=== PATIENT | female | born 1960 | race African-American/Black ===

== ENCOUNTER 2016-10-24 13:31 | Inpatient (IN) ==
[2016-10-24] MEDS ORDERED: HYDROMORPHONE 2 MG/ML INJECTION IVP ONE ×2 (13:53→14:51)
[2016-10-24] MEDS ORDERED: ONDANSETRON 4 MG/2 ML INJECTION IVP ONE (13:53)
--- NOTE | 2016-10-24 14:23 | CT Scan Report ---
Indication: Diffuse Abdominal pain for two days, distention PROCEDURE: CT abdomen pelvis wo con: Encounter: Initial Comparison: None Technique: Axial CT images were performed through the abdomen and pelvis without intravenous contrast. Coronal and sagittal two-dimensional reformats. Automated Exposure Control and Iterative Reconstruction dose reducing techniques were utilized. Findings: The lung bases are clear. Calcified granuloma in the lingula. Moderate amount of free fluid in the abdomen and pelvis. Low-attenuation lesion in the anterior left lobe of liver on axial image #17 measuring 1 cm in size possibly representing a benign cyst this has an attenuation of 6 Hounsfield units. Additional cyst in the more inferior left lobe on image #20 measuring 1.5 cm in diameter and smaller low-attenuation foci in the inferior right lobe on axial image #25 which are too small to definitively characterize. The gallbladder is grossly unremarkable. Examination is limited without IV or oral contrast. The spleen is diminutive. The pancreas is grossly normal. Adrenal glands appear normal as do the unenhanced kidneys. Bladder is unremarkable. Uterus appears normal. Colon is decompressed distally. There is stool and possible wall thickening within the region of the cecum. There are multiple dilated small bowel loops present throughout the abdomen. A precise transition point cannot be located. There is a swirling appearance of the mesentery seen on coronal images 13 through 18 in the left upper quadrant. The appendix is visualized without acute inflammation. There are thick-walled dilated small bowel loops seen in the anterior lower abdomen and pelvis. No free air appreciated. Bone windows show mild degenerative change in the spine. Impression: 1. Acute small bowel obstruction with suggestion of swirling in the left upper quadrant mesentery could represent an internal hernia. Evaluation is quite limited without oral or IV contrast and the precise transition point or site of obstruction cannot be located. Thick-walled small bowel loops could represent mesenteric edema or developing small bowel ischemia. Surgical consultation is recommended. 2. Moderate volume ascites. .
[2016-10-24] MEDS: NS 1,000 ML IV SCH ×2 (14:34→21:33)
--- NOTE | 2016-10-24 14:36 | Emergency Department Report ---
Abdominal Pain HPI - General Chief Complaint: Abdominal Pain Stated Complaint: real bad cramping in abd, sweats,cant sleep Time Seen by Provider: 10/24/16 13:45 Source: patient Mode of arrival: ambulatory Limitations: no limitations - History of Present Illness HPI narrative: Pt presents with severe abd pain for the last few days. Pt is unaware if she has had a fever but has had chills. Reports vomiting after any PO intake. Denies diarrhea. States she drinks alcohol every other day and has HTN MD complaint: abdominal pain Onset (ago): day(s) Consistency: constant Location: diffuse Severity: severe Quality: cramping, fullness Relieving factors: nothing Exacerbating factors: nothing Associated symptoms: nausea, vomiting, chills - Related Data Home Medications Medication Instructions Recorded Confirmed Atenolol 25 mg PO DAILY #0 08/19/14 10/24/16 Pravastatin Sodium 20 mg PO DAILY #0 08/19/14 10/24/16 hydroCHLOROthiazide 25 mg PO DAILY #0 08/19/14 10/24/16 [Hydrochlorothiazide] Allergies Allergy/AdvReac Type Severity Reaction Status Date / Time No Known Allergies Allergy Unverified 08/19/14 16:09 Review of Systems All systems: reviewed and negative except as stated Constitutional: Reports: chills Gastrointestinal: Reports: abdominal pain, nausea, vomiting PFSH Patient Stated Medical History Hypertension Yes Post Menopausal Yes - Social History Smoking status: Current every day smoker Physical Exam - Limitations Limitations: no limitations - General General appearance: alert, in distress - Normal Exams: Head:: Normocephalic without trauma Eyes:: Pupils are PERRLA w/ EOMI Neck:: Full range of motion Chest/Respirations:: Clear all rodgers, with good airflow, and symmetry bilaterally Cardiovascular:: Regular rate and rhythm, without murmur or gallop, Pulses 2+ all extremities, capillary refill, <2 seconds all extremities Musculoskeletal:: No tenderness, or deformity noted, good range of motion, all extremities Integumentary:: No rashes Neurological:: Patient is alert Psychiatric:: Patient exhibits, appropriate attention, emotion and affect - Abdominal Exam Abdominal exam: Present: distention, tenderness, rebound, diminished bowel sounds Course - Consultations Consultation #1: Dr Nava Time: 15:00 Vital Signs Temperature 97.5 F 10/24/16 13:35 Pulse Rate 103 H 10/24/16 13:35 Respiratory Rate 20 10/24/16 13:35 Blood Pressure 181/79 H 10/24/16 13:35 Pulse Oximetry 100 10/24/16 13:35 Temperature 97.5 F 10/24/16 13:35 Pulse Rate 103 H 10/24/16 13:35 Respiratory Rate 20 10/24/16 13:35 Blood Pressure 181/79 H 10/24/16 13:35 Pulse Oximetry 100 10/24/16 13:35 Abdominal Pain - MDM Narrative Medical decision making narrative: Labs with varying abnormalities reviewed. CT shows abd free fluid with possible ischemic bowel, Dr Nava notified and will be taking patient to the OR. Pt continues to receive pain meds and IVF while in the ER - Differential Diagnosis Differential diagnosis: Likely: abdominal pain, acute appendicitis, constipation , diverticulitis, pancreatitis, small bowel obstruction - Lab Data Attestation: I reviewed the patient's lab results. Result diagrams: 10/24/16 14:32 10/24/16 14:32 - Radiology Data per Dr Walker Disposition Clinical Impression: Ischemic bowel syndrome, Alcoholism /alcohol abuse Acute kidney failure Qualifiers: Acute renal failure type: unspecified Qualified Code(s): N17.9 - Acute kidney failure, unspecified Abdominal pain Qualifiers: Abdominal location: generalized Qualified Code(s): R10.84 - Generalized abdominal pain Disposition: 02 To [facility] [place] Acute Care Condition: Stable Prescriptions: No Action hydroCHLOROthiazide [Hydrochlorothiazide] 25 mg PO DAILY #0 Atenolol 25 mg PO DAILY #0 Pravastatin Sodium 20 mg PO DAILY #0 Referrals: Jeni Mckeon APRN [Primary Care Provider] - Time of Disposition: 15:56 - Seen By: midlevel
[2016-10-24] MEDS ORDERED: LIDOCAINE 2% (100mg/5mL) PF 5ml vl ONE (15:33)
[2016-10-24] MEDS ORDERED: PROPOFOL 20 ML ONE (15:33)
[2016-10-24] MEDS ORDERED: SUCCINYLCHOLINE 20mg/mL 10mL INJECTION ONE (15:33)
[2016-10-24] MEDS ORDERED: ROCURONIUM 50 MG/5 ML INJECTION IVP ONE ×2 (15:33→17:54)
[2016-10-24] MEDS ORDERED: FentaNYL 100 MCG/2 ML INJECTION ONE ×2 (15:37→17:49)
--- NOTE | 2016-10-24 16:49 | Anesthesia Preoperative Report ---
Anesthesia Preoperative Record - Date and Time Date: 10/24/16 Preoperative Diagnosis: real bad cramping in abd, sweats,cant sleep NPO Since Date: 10/24/16 NPO Since Time: 11:00 (water) Allergies/Adverse Reactions: Allergies Allergy/AdvReac Type Severity Reaction Status Date / Time No Known Allergies Allergy Unverified 08/19/14 16:09 - Vital Signs Vital Signs: Temperature 98.4 F 10/24/16 16:05 Pulse Rate 86 10/24/16 16:13 Respiratory Rate 20 10/24/16 16:05 Blood Pressure 108/66 10/24/16 16:05 Pulse Oximetry 100 10/24/16 16:05 Height and Weight: Height 1.6 m Weight 58.1 kg - Medications Inpatient Medications: Current Medications Sodium Chloride (Normal Saline) 1,000 mls @ 250 mls/hr IV .Q4H JENELLE Last Admin: 10/24/16 14:34 Dose: 250 mls/hr Home Medications: Home Medications Medication Instructions Recorded Confirmed Type Atenolol 25 mg PO DAILY #0 08/19/14 10/24/16 History Pravastatin Sodium 20 mg PO DAILY #0 08/19/14 10/24/16 History hydroCHLOROthiazide 25 mg PO DAILY #0 08/19/14 10/24/16 History [Hydrochlorothiazide] Is Patient on Beta Bhavesh?: Yes Beta Bhavesh Last Dose Date/Time: npo - Medical History Cardiovascular: Reports: Hypertension, High Cholesterol - Surgical History Anesthesia Reactions: None Hx Family Anesthesia Reaction: No History of Motion Sickness: No - Social History Smoking Status: Current every day smoker Hx Chewing Tobacco Use: No Second Hand Exposure: No Substance Use Type: does not use Alcohol Intake Frequency: does not drink - Pertinent Findings Laboratory: CBC and BMP 10/24/16 14:32 10/24/16 14:32 BMP 10/24/16 14:32 Sodium 140 Potassium 3.5 L Chloride 103 Carbon Dioxide 18 L BUN 22.0 H Creatinine 2.1 H Glucose 149 H Calcium 8.0 L Liver Function 10/24/16 Range/Units 14:32 Total Bilirubin 0.90 (0.20-1.30) MG/DL AST 32 (14-36) U/L ALT 26 (9-52) U/L Alkaline Phosphatase 80 (38-126) U/L Albumin 4.1 (3.5-5.0) G/DL EKG: Sinus Rhythm - Physical Exam Respiratory Exam: Present: lungs clear Cardiovascular Exam: Present: regular rate and rhythm - Airway Assessment Mallampati Score: I TMD: 3 Fingerbreadths Neck Extension: fair Overall Assessment: no airway concerns - ASA ASA Score: 3, E - Plan Anesthesia: General Inhalation Gases - Discussion Discussion: Discussed risks/options/alternatives of anesthesia and questions answered. Patient consents. Nursing pain assessment noted. Present for Discussion: family member Attestation Statement: Prior to the delivery of any anesthetic medication, I examined the patient, developed the plan, obtained the patient's consent and discussed the risk and benefits of the procedure with the patient/guardian. - Additional Information Seen by Anesthesia: Yes
[2016-10-24] MEDS ORDERED: LIDOCAINE 2% JELLY Tube 30ml ONE (17:03)
[2016-10-24] MEDS ORDERED: PHENYLEPHRINE INJ 10 MG/ML VIAL IV ONE (17:06)
[2016-10-24] MEDS ORDERED: SALINE FLUSH 10ml SYRINGE ONE (17:06)
[2016-10-24] MEDS ORDERED: SALINE FLUSH *Sterile* 10 ML SYRINGE ONE (17:39)
[2016-10-24] MEDS ORDERED: VASOPRESSIN 20unit/ml INJECTION ONE (18:14)
[2016-10-24] MEDS: LR 1,000 ML IV SCH ×2 (18:40→19:49)
[2016-10-24] MEDS ORDERED: DEXAMETHASONE 4 MG/ML INJECTION ONE (18:46)
[2016-10-24] MEDS ORDERED: ONDANSETRON 4 MG/2 ML INJECTION ONE (18:46)
[2016-10-24] MEDS ORDERED: HYDROMORPHONE 2 MG/ML INJECTION ONE (18:55)
[2016-10-24] MEDS ORDERED: SUGAMMADEX 200mg/2ml INJECTION IVP ONE (18:56)
--- NOTE | 2016-10-24 19:36 | General Surgery Procedure Note ---
Date of Procedure: 10/24/16 Surgeon: Elijah Postoperative Diagnosis: Small bowel obstruction with strangulation Procedure: small bowel resection Estimated Blood Loss: See Anesthesia Record.
[2016-10-24] MEDS: HYDROMORPHONE 2 MG/ML INJECTION IVP PRN ×2 (19:46→20:28)
--- NOTE | 2016-10-24 19:51 | History and Physical ---
HISTORY OF PRESENT ILLNESS This patient is 56 years old. She has had no previous abdominal operations. She has no history of any type of chronic abdominal pain or any chronic abdominal problems. The patient did experience the onset of generalized abdominal pain on the morning of 10/23/2016. This pain has gradually steadily become worse. The patient has had nausea and vomiting since the onset of this abdominal pain. She has had no diarrhea. The abdominal pain did become severe enough that the patient came to [facility] for evaluation on 10/24/2016. The CT scan of the abdomen and pelvis performed during evaluation at [facility] shows an acute small bowel obstruction with a suggestion of swirling in the left upper quadrant mesentery which could represent an internal hernia. White blood cell count at the emergency room is noted to be 22,000. There is concern that the patient might have some ischemic small bowel. The CT scan does also show a moderate amount of ascites fluid within the peritoneal cavity. There is no free air. PAST MEDICAL HISTORY PREVIOUS OPERATIONS 1. Removal of wisdom teeth at some time in the early at [place], [place]. 2. Removal of cyst from left foot sometime in the at [place], [place]. OTHER CURRENT MEDICAL PROBLEMS 1. Nicotine dependence. 2. Hypertension. 3. Hyperlipidemia. SOCIAL HISTORY The patient lives in [place], [place]. The patient is unemployed. The patient is . The patient smokes about one pack of cigarettes every four to five days. She does drink alcohol. She drinks alcohol on the weekends. She sometimes drinks alcohol every other day during the week. The patient drinks vodka. CURRENT MEDICATIONS 1. Atenolol one p.o. daily in the a.m. 2. Hydrochlorothiazide one p.o. daily in the a.m. 3. Medication for treatment of hyperlipidemia. ALLERGY HISTORY The patient states she has no known allergies to medications. PHYSICAL EXAMINATION VITAL SIGNS: Pulse is 97. Blood pressure is 111/72. Oxygen saturation is 99% on room air. Height is 1.6 meters. Weight is 58.1 kg. BMI is 22.7 kg/m2. HEENT: No abnormality is noted. NECK: No neck masses. CHEST: Lung sounds are clear. BREASTS: Not examined. HEART: Regular rhythm. No murmurs. ABDOMEN: The superior margin of the umbilicus is pierced. No old incision scars. The abdomen is diffusely distended. The patient does have generalized abdominal tenderness. There is no rebound tenderness. There are no masses at the abdomen. RECTUM: Exam deferred. EXTREMITIES: No abnormality is noted. LABORATORY DATA White blood cell count is 22,000. Hemoglobin is 13.1. Hematocrit is 38.7. Platelet count is 380,000. INR is 0.97. Serum sodium is 140. Serum potassium is 3.5. Serum creatinine is elevated at 2.1. Total bilirubin, AST, ALT and alkaline phosphatase are all normal. Serum lipase is 44. Procalcitonin result at admission is pending yet at this time. Venous blood lactate result at admission is pending at this time. IMAGING DATA The patient did have a CT scan of the abdomen and pelvis performed on 2016. This CT scan of the abdomen and pelvis shows an acute small bowel obstruction with a suggestion of swirling in the left upper quadrant mesentery which could represent an internal hernia. There are some thick-walled small bowel loops. There is a moderate volume of ascites demonstrated. IMPRESSION 1. Acute abdominal pain. 2. Sepsis. 3. Acute small bowel obstruction with suggestion of swirling in the left upper quadrant mesentery which could represent an internal hernia demonstrated on CT scan of the abdomen and pelvis. 4. Moderate volume of ascites demonstrated on 10/24/2016 CT scan of the abdomen and pelvis. 5. Mild hypokalemia. 6. Elevated serum creatinine. 7. Nicotine dependence. 8. Hypertension. 9. Hyperlipidemia. PATIENT EDUCATION I did talk with the patient about undergoing exploratory laparotomy with possible small bowel resection. The nature of this procedure was explained to the patient [id number]. Expected benefits were reviewed. Alternatives were reviewed. Potential risks and complications were also reviewed including anesthetic risk, bleeding, infection, poor wound-healing and injury to intraabdominal structures. Questions were solicited from the patient. All of her questions were answered. PLAN Exploratory laparotomy with possible small bowel resection by Dr. Nava at [facility]. JUAN
--- NOTE | 2016-10-24 20:05 | Anesthesia Postoperative Note ---
- Date and Time Date: 10/24/16 Time: 20:04 - Status Patient Participated in Evaluation: Patient Participated in Person Vital Signs: Temperature 98.1 F 10/24/16 19:34 Pulse Rate 93 10/24/16 19:55 Respiratory Rate 22 10/24/16 19:55 Blood Pressure 119/57 10/24/16 19:55 Pulse Oximetry 99 10/24/16 19:55 Respiratory Function: Airway Patent, Regular Respirations Cardiovascular Function: Regular Pulse Mental Status: Alert and Oriented Pain Intensity: 5 (tolerable) Hydration: IV Infusing Complications During Recover: None Apparent - Follow-Up Instructions Instructions: Per Surgeon
[2016-10-24] MEDS ORDERED: SORE THROAT SPRAY 20ml PO PRN (20:40)
[2016-10-24] MEDS ORDERED: PROMETHAZINE 25 MG INJECTION IVP PRN (20:40)
[2016-10-24] MEDS ORDERED: FAMOTIDINE PB 20 MG/50 ML BAG IV SCH (20:40)
[2016-10-24] MEDS ORDERED: ONDANSETRON 4 MG/2 ML INJECTION IVP PRN (20:40)
[2016-10-24] MEDS: D5-1/2NS with KCL 20mEq 1,000 ML IV SCH (21:11)
[2016-10-24] MEDS ORDERED: NS 1,000 ML IV ONE ×2 (21:24→23:34)
[2016-10-24] MEDS ORDERED: NS FLUSH BAG 500ml IV PRN (21:43)
[2016-10-24] MEDS: MORPHINE SULFATE 10 MG SYRINGE IV PRN ×2 (22:18→23:44)
[2016-10-24] MEDS: BENZOCAINE/MENTHOL SORE THROAT LOZENGE MM PRN (22:18)
[2016-10-25] MEDS: MORPHINE SULFATE 10 MG SYRINGE IV PRN ×9 (01:11→22:28)
[2016-10-25] MEDS: BENZOCAINE/MENTHOL SORE THROAT LOZENGE MM PRN ×2 (01:11→03:29)
[2016-10-25] MEDS: D5-1/2NS with KCL 20mEq 1,000 ML IV SCH ×3 (06:51→23:05)
[2016-10-25] MEDS ORDERED: FAMOTIDINE PB 20 MG/50 ML BAG IV SCH ×2 (09:00→21:00)
[2016-10-25] MEDS ORDERED: ERTAPENEM 1 G in NS 100 ML IV SCH (09:00)
--- NOTE | 2016-10-25 13:14 | Operative Note ---
DATE OF OPERATION 10/24/2016 PREOPERATIVE DIAGNOSES 1. Acute abdominal pain. 2. Acute small bowel obstruction with suggestion of swirling in the left upper quadrant mesentery which could represent an internal hernia demonstrated on CT scan of the abdomen and pelvis. 4. Moderate volume of ascites demonstrated on 10/24/2016 CT scan of the abdomen and pelvis. POSTOPERATIVE DIAGNOSIS Acute small bowel obstruction with strangulation and necrosis of loop of small bowel due to internal herniation beneath adhesive band. OPERATION Placement of right internal jugular multilumen central venous catheter, exploratory laparotomy, lysis of adhesive band with release of small bowel obstruction and small bowel resection with primary anastomosis. SURGEON Dr. Nava BLANKET WEAVER Dr. Shea ANESTHESIA General. ASA CLASS 3E FINDINGS The patient did have an adhesive band which extended from the right ovary and distal end of the right fallopian tube superiorly and medially to the base of the small bowel mesentery. This was a thick dense adhesive band. This was the only adhesion or adhesive band seen within the peritoneal cavity at the time of the operation. There was a loop of small intestine which was trapped beneath this adhesive band. This adhesive band was compressing the loop of small intestine and causing obstruction of the small intestine. The adhesive band was also causing strangulation of this loop of small intestine. This loop of small intestine was a loop of ileum at the distal half of the small intestine. The loop of small intestine which was trapped in this manner looked frankly necrotic. There was a sharp area of demarcation at the proximal end of this loop of small intestine which was trapped beneath the adhesion with indentation of the small intestine at this level and a sharp color change in the intestine. Small bowel proximal to the loop of intestine which was obstructed by this adhesion was dilated. Small bowel distal to this area and small bowel at the terminal ileum was collapsed and not dilated. The liver appeared normal. There were few small cysts in the liver, but the liver otherwise appeared completely normal. Gallbladder appeared normal and did not appear to contain any stones. The appendix appeared normal. There was a large amount of bloody fluid in the peritoneal cavity. There did not appear to be any perforation of the intestine anywhere. There was no purulent fluid anywhere in the peritoneal cavity. The colon which was visualized appeared normal. Proximal small intestine appeared normal except for being dilated due to the obstruction at the distal half of the small intestine. DESCRIPTION OF OPERATION The patient was placed in supine position on the operating table. General anesthesia was satisfactorily induced. The patient had a 24-gauge peripheral intravenous catheter at the left upper extremity at this time. Attempts were made to insert additional peripheral intravenous catheters. The patient did have poor peripheral vascular access. A 20-gauge peripheral intravenous catheter was inserted at the right hand. There was concern about the quality of these peripheral catheters and whether they would work well throughout the operation. It was thought that the patient should have better venous access before the start of the operation so that the PLANNING TECHNICIAN would not lose venous access during the operation. A decision was made to insert a multilumen central venous catheter. The patient was placed in Trendelenburg position. The left side of the neck, left supraclavicular area, left infraclavicular area, left shoulder, suprasternal notch area, right side of the neck, right supraclavicular area, right infraclavicular area and right shoulder were all prepped with ChloraPrep solution. Sterile drapes were placed. An ultrasound machine was used to examine the right internal jugular vein. The right internal jugular vein and the right carotid artery were identified with the ultrasound machine. Skin at a percutaneous venipuncture site at the right side of the neck was infiltrated with 1% Xylocaine without epinephrine to provide local anesthesia. A small incision was made at this area. Percutaneous venipuncture of the right internal jugular vein was then performed with ultrasound guidance. The vein was entered and there was a good return of dark red nonpulsatile blood. A flexible guidewire was passed through the needle and through the internal jugular vein down into the superior vena cava. The presence of the flexible guidewire within the superior vena cava was confirmed with fluoroscopy with the C-arm at this time. A 7-Urdu triple-lumen 20 cm long radiopaque polyurethane multilumen central venous catheter was flushed with normal saline solution. The multilumen central venous catheter was then inserted into the right internal jugular vein and into the superior vena cava with Seldinger technique. Fluoroscopy with the C-arm was used at this time to look at the position of the tip of the catheter and adjust the catheter until the tip was in the correct position. A Biopatch antimicrobial dressing was placed around the multilumen central venous catheter at the skin entrance site. The multilumen central venous catheter was secured to skin adjacent to the catheter entrance site with 3-0 silk suture. A sterile OpSite type of dressing was applied to the multilumen central venous catheter insertion site. Sterile technique was maintained throughout the procedure. The surgeon did wear sterile mask and gloves and gown throughout the procedure. The patient was changed from Trendelenburg position back to supine position. The abdomen was prepped and draped in routine sterile fashion. A vertically oriented midline abdominal incision was made. The incision was extended through the abdominal wall. The peritoneal cavity was entered. An Bao wound protector was placed at this time. The peritoneal cavity was explored with findings as described above. The adhesive band which was causing the closed loop obstruction was divided. This did release the small bowel obstruction. The loop of small intestine which was strangulated and necrotic was mobilized up towards the incision. Proximal and distal margins were selected at viable small bowel proximal and distal to the strangulated segment of small intestine. The small intestine was divided at these proximal and distal resection margins with the TLC75 linear cutter-stapler. Small bowel mesentery was then divided beneath the segment of small intestine to be resected. The small bowel mesentery was doubly clamped with hemostats, divided between hemostats and ligated with 0 Vicryl ligatures. The loop of small bowel which was resected was handed off and submitted as a specimen for study by the pathologist. The two ends of the small intestine were then anastomosed to one another with a functional end-to-end anastomosis using the TLC75 linear cutter- stapler and the TX60B stapling device. The opening in the mesentery beneath the small intestine was closed with a continuous simple [id number] stitch using 3-0 Vicryl suture. A couple of 3-0 Vicryl suture seromuscular stitches were placed in the usual manner at the crotch of the anastomosis. Small bowel contents in the dilated small bowel proximal to the anastomosis were then milked through the anastomosis. This did distend up the anastomosis and distended up small intestine distal to the anastomosis. There was no leakage of small bowel contents out through the staple lines anywhere. This did show that the anastomosis was watertight. The anastomosis appeared to have a good blood supply. The anastomosis appeared to have satisfactory size. There was no tension on the anastomosis. Irrigation was performed at the left lateral gutter and at the right lateral gutter and at the pelvis prior to creation of the anastomosis. Irrigation fluid was removed. Small intestine was placed back in the peritoneal cavity in normal anatomic position. The greater omentum was brought down over the small intestine. The Bao wound protector was removed. The surgeon and research study assistant and scrub nurse all changed gowns and gloves at this time. New sterile drapes were placed around the incision. A new dedicated closing set of instruments was used. New light handles, monopolar electrosurgery device and suction device were used. The incision was closed. The fascial layer of the abdominal wall was closed and the linea alba was reapproximated at the midline incision with a continuous simple over-and- over stitch using #1 PDS suture. The base of the umbilicus was secured down to the underlying fascia with a couple of simple interrupted stitches of 3-0 Vicryl suture. Skin margins at the incision were closed with skin marybeth. Sterile dressings were applied. Sponge, needle and instrument counts were all correct. The patient did appear to tolerate the operation well. The patient was transferred from the operating room to the recovery room in stable condition. JUAN
--- NOTE | 2016-10-25 20:47 | Progress Note ---
DATE 10/25/2016 POSTOP DAY #1 HISTORY The patient was transferred from the recovery room to the Intensive Care Unit yesterday evening following her operation. The patient did have some low urine output overnight. She was given 2 liters of normal saline as fluid challenges overnight and her urine output did improve in response to this. The patient remains in the Intensive Care Unit at this time. She is up in the chair. She has been using incentive spirometry. She is alert and oriented. INTAKE AND OUTPUT Urine output is adequate at this time. There has been very little nasogastric tube output. PHYSICAL EXAMINATION VITAL SIGNS: Temperature is 98.9 degrees Fahrenheit oral. Pulse is 86. Respiratory rate is 21. Blood pressure is 140/69. Oxygen saturation is 100% on room air. ABDOMEN: Dressings were left in place at the abdominal incision. LABORATORY DATA White blood cell count was 25,000 with 6 bands at 0535 hours this morning. Hemoglobin was 8 and hematocrit was 24.9 at 0535 hours this morning. Hemoglobin was 8.1 at 1006 hours this morning. Hemoglobin was 7.6 at 1519 hours this afternoon. Serum sodium was 140 this morning. Serum potassium was 4.2. Serum creatinine was decreased to 1.9 this morning. Procalcitonin level was 0.68 this morning. Plasma lactate level was 1 this morning. IMPRESSION 1. Doing well overall following exploratory laparotomy, lysis of adhesive band with release of small bowel obstruction and small bowel resection with primary anastomosis on 10/24/2016. 2. Resolution of mild hypokalemia which was present at admission. 3. Anemia. I think a lot of this is dilutional. I think that the hemoglobin and hematocrit at the time of admission to the hospital were hemoconcentrated due to all the nausea and vomiting which the patient had been experiencing and all the third spacing of fluid into the peritoneal cavity associated with strangulation and necrosis of the small bowel. Correction of this hemoconcentration has resulted in the current hemoglobin and hematocrit. The fluid that was present in the peritoneal cavity at the beginning of the operation was bloody. I think it is unlikely that the patient has any active bleeding in the peritoneal cavity at this time. The patient did appear to have a hemorrhagic necrosis of the small bowel at time of operation yesterday and there was probably some bleeding into the small bowel associated with strangulation of the small bowel which has resulted in some of the anemia which is present. PLAN 1. Keep patient in the Intensive Care Unit for monitoring at this time. 2. Check hemoglobin every 6 hours to see if the anemia worsens or remains stable. 3. Type and screen for blood in case the patient does need a blood transfusion. 4. Continue postoperative care in the Intensive Care Unit at this time. 5. Continue Pepcid for GI prophylaxis. 6. Continue sequential compression devices for deep venous thrombosis prophylaxis. I will hold off starting the patient on Lovenox at this time yet because of the concern about the low hemoglobin and hematocrit and the possibility of postoperative bleeding. 7. Continue to monitor urine output and serum creatinine level to monitor the renal status of the patient. MTDD
[2016-10-26] MEDS: MORPHINE SULFATE 10 MG SYRINGE IV PRN ×6 (01:38→23:36)
[2016-10-26] MEDS: SALINE FLUSH 10ml SYRINGE IV PRN ×2 (01:39→12:32)
[2016-10-26] MEDS: D5-1/2NS with KCL 20mEq 1,000 ML IV SCH ×3 (04:55→17:33)
[2016-10-26] MEDS ORDERED: NS FLUSH BAG 500ml IV PRN (05:58)
[2016-10-26] MEDS ORDERED: DiphenhydrAMINE 50 MG/ML INJECTION IVP ONE (06:02)
--- NOTE | 2016-10-26 12:28 | Pharmacy Consult- Renal Dosing ---
Pharamcy Consul-Renal Dosing - Laboratory Information 10/25/16 10/26/16 05:35 05:12 BUN 30.0 H 14.0 D Creatinine 1.9 H D 1.0 D RENAL DOSING: Today's Serum Creatinine = 1.0 mg/dl. Calculated Creatine Clearance = 56 ml/ min. I changed the Famotidine to 20 mg iv every 12 hours due to improved renal function, per the Pharmacy Renal Monitoring and Adjustment Program. The pharmacy will continue to review the renal function and adjust the famotidine accordingly. Wesley Stone, Pharmacist.
[2016-10-26] MEDS: FAMOTIDINE PB 20 MG/50 ML BAG IV SCH (13:35)
[2016-10-26] MEDS ORDERED: ATENOLOL 25 MG TABLET PO ONE (20:32)
[2016-10-26] MEDS ORDERED: Verapamil SR 120 MG TABLET (12Hr) PO ONE (20:34)
--- NOTE | 2016-10-26 22:11 | Progress Note ---
DATE 10/26/2016 POSTOP DAY #2 HISTORY The patient remains in the Intensive Care Unit at this time. Hemoglobin was 7.3 at 2144 hours on 10/25/2016. Hemoglobin was 6.9 and hematocrit was 21.5 at 0512 hours today. The patient was transfused with one unit of packed red blood cells this morning. Hemoglobin was 8.7 at 1040 hours at a time one-half hour following completion of the transfusion. The patient has been up in the chair. She is using incentive spirometry. The patient did begin passing some flatus today. INTAKE AND OUTPUT The urine output has been very good. The patient had 1180 mL of urine output during one eight-hour shift. The patient had 1370 mL of urine output during another eight-hour shift. The patient did have 300 mL of nasogastric tube output during one eight-hour shift. The patient had 200 mL of nasogastric tube output during the next eight-hour shift. PHYSICAL EXAMINATION VITAL SIGNS: Temperature is 99.3 degrees Fahrenheit oral. Pulse is 78. Respiratory rate is 18. Blood pressure is 172/87. Oxygen saturation is 100% on room air. ABDOMEN: The abdominal incision looks good. LABORATORY DATA The white blood cell count was 11,800 with no bands this morning. Hemoglobin was 6.9 and hematocrit was 21.5 at 0512 hours. The hemoglobin was 8.7 at 1040 hours one-half hour after the patient completed the blood transfusion. Hemoglobin was 9.2 at 1654 hours. Serum sodium was 144 this morning. Serum potassium was 3.6. Serum creatinine was 1. IMPRESSION 1. Doing well overall following exploratory laparotomy, lysis of adhesive band with release of small bowel obstruction and small bowel resection with primary anastomosis on 10/24/2016. 2. Anemia of uncertain etiology. PLAN 1. Continue to monitor patient in the Intensive Care Unit until the hemoglobin and hematocrit become stable to be sure the patient is not having any postoperative intraabdominal bleeding. 2. Continue to monitor hemoglobin and hematocrit. 3. Continue Pepcid for GI prophylaxis. 4. Continue sequential compression devices for deep venous thrombosis prophylaxis. I am holding off on starting the patient on Lovenox yet at this time because of concern about possible postoperative intraabdominal bleeding. 5. Discontinue Egan catheter today. 6. Discontinue nasogastric tube today. 7. Decrease rate of intravenous fluid administration to 75 mL/hr. MTDD
[2016-10-27] MEDS: FAMOTIDINE PB 20 MG/50 ML BAG IV SCH ×3 (01:03→20:29)
[2016-10-27] MEDS: MORPHINE SULFATE 10 MG SYRINGE IV PRN ×4 (01:05→14:44)
[2016-10-27] MEDS: D5-1/2NS with KCL 20mEq 1,000 ML IV SCH ×3 (02:01→19:04)
[2016-10-27] MEDS: Verapamil SR 120 MG TABLET (12Hr) PO SCH (08:37)
[2016-10-27] MEDS: ATENOLOL 25 MG TABLET PO SCH (08:37)
[2016-10-27] MEDS: IBUPROFEN 200 MG TABLET PO PRN ×2 (16:56→20:31)
[2016-10-27] MEDS: Oxycodone *IR* 5 MG TABLET PO PRN (22:23)
[2016-10-28] MEDS: Oxycodone *IR* 5 MG TABLET PO PRN (03:09)
[2016-10-28] MEDS: SALINE FLUSH 10ml SYRINGE IV PRN ×3 (04:43→23:27)
--- NOTE | 2016-10-28 08:07 | Progress Note ---
DATE 10/27/2016 POSTOP DAY #3 HISTORY The patient remains in the intensive care unit at this time. Oral antihypertensive medications were resumed yesterday evening since the patient's blood pressure was increasing. These are the oral antihypertensive medications which the patient was taking prior to this hospitalization. The patient is doing well today. She has been walking. She has been using incentive spirometry. The patient does continue to pass some flatus today. She has the usual normal postoperative incisional discomfort. INTAKE AND OUTPUT The patient continues to have a good urine output. The patient did have 1000 mL of urine output during the last eight-hour shift. PHYSICAL EXAMINATION VITAL SIGNS: Pulse is 58. Respiratory rate is 12. Blood pressure is 102/72. Oxygen saturation is 99% on room air. ABDOMEN: The abdomen is soft and flat and nondistended. The abdominal incision looks good. LABORATORY DATA White blood cell count is 11,600 with no bands today. Hemoglobin is 9.9. Hematocrit is 29.6. Serum sodium is 141. Serum potassium is 3.4. Serum creatinine is 0.8. IMPRESSION 1. Doing well following exploratory laparotomy, lysis of adhesive band with release of small bowel obstruction and small bowel resection with primary anastomosis on 10/24/2016. 2. Anemia of uncertain etiology which is improving at this time. 3. Mild hypokalemia. PLAN 1. Transfer the patient from intensive care unit out to a room on surgical unit today. 2. Continue to monitor hemoglobin and hematocrit. 3. Continue Pepcid for GI prophylaxis. 4. Continue sequential compression devices for deep venous thrombosis prophylaxis. 5. Start a clear liquid diet with toast and crackers today. 6. Decrease rate of intravenous fluid administration even further today. Decrease rate of intravenous fluid administration to 50 mL /hr. 7. Correct hypokalemia. MTDD
[2016-10-28] MEDS: ACETAMINOPHEN 500 MG TABLET PO PRN ×3 (09:37→23:24)
[2016-10-28] MEDS: MORPHINE SULFATE 10 MG SYRINGE IV PRN (09:38)
[2016-10-28] MEDS: Verapamil SR 120 MG TABLET (12Hr) PO SCH (09:41)
[2016-10-28] MEDS: ATENOLOL 25 MG TABLET PO SCH (09:41)
[2016-10-28] MEDS: FAMOTIDINE PB 20 MG/50 ML BAG IV SCH ×2 (09:42→21:13)
[2016-10-28] MEDS: D5-1/2NS with KCL 20mEq 1,000 ML IV SCH (09:59)
[2016-10-28] MEDS: METOCLOPRAMIDE 10mg/2ml INJECTION IVP SCH ×3 (10:01→21:12)
[2016-10-28] MEDS ORDERED: D5W IV SCH (10:30)
[2016-10-28] MEDS ORDERED: POTASSIUM CHLORIDE IV SCH (10:30)
[2016-10-28] MEDS: AZITHROMYCIN IV 500 MG in NS 250ml 250 ML IV SCH (12:02)
[2016-10-28] MEDS: KETOROLAC 30 MG/ML INJECTION IVP PRN ×2 (13:38→21:31)
--- NOTE | 2016-10-28 20:41 | Progress Note ---
DATE 10/28/2016 POSTOP DAY #4 HISTORY The patient is having more abdominal pain today. She is having nausea today. This is all since the clear liquid diet was started yesterday. She continues to pass flatus. INTAKE AND OUTPUT The patient continues to have a good urine output. PHYSICAL EXAMINATION VITAL SIGNS: Temperature is 98.3 degrees Fahrenheit oral. Pulse is 65. Respiratory rate is 18. Blood pressure is 134/81. Oxygen saturation is 99% on room air. ABDOMEN: The abdominal incision looks good. The abdomen is not very distended. LABORATORY DATA White blood cell count is 9200 with no bands. Hemoglobin is 9.5. Hematocrit is 28.8. Serum sodium is 136. Serum potassium is 3.1 today. Serum creatinine is 1.1. IMPRESSION 1. Doing well following exploratory laparotomy, lysis of adhesive band with release of small bowel obstruction and small bowel resection with primary anastomosis on 10/24/2016. 2. Anemia which is stable at this time. 3. Hypokalemia which is worse than yesterday. 4. Postoperative ileus. PLAN 1. Decrease intake of clear liquid diet with toast and crackers since the abdominal pain has worsened and the nausea has appeared since this was started yesterday. 2. Correct hypokalemia. The patient will be given 50 mEq potassium chloride in 500 mL of D5W intravenously over 5 hours to correct the hypokalemia. 3. Start Reglan 10 mg IV every 6 hours and azithromycin 250 mg IV every 24 hours as prokinetic agents to help with resolution of the postoperative ileus. The Reglan can also help with nausea control. 4. Stop Motrin and start IV Toradol for better nonnarcotic pain control. 5. Continue Pepcid for GI prophylaxis. 6. Continue sequential compression devices for deep venous thrombosis prophylaxis. 7. Continue ambulation. MTDD
[2016-10-29] MEDS: D5-1/2NS with KCL 20mEq 1,000 ML IV SCH (00:54)
[2016-10-29] MEDS: KETOROLAC 30 MG/ML INJECTION IVP PRN ×2 (03:42→22:30)
[2016-10-29] MEDS: METOCLOPRAMIDE 10mg/2ml INJECTION IVP SCH ×4 (03:42→21:35)
[2016-10-29] MEDS: Verapamil SR 120 MG TABLET (12Hr) PO SCH (08:08)
[2016-10-29] MEDS: ATENOLOL 25 MG TABLET PO SCH (08:08)
[2016-10-29] MEDS: FAMOTIDINE PB 20 MG/50 ML BAG IV SCH ×2 (08:09→21:36)
[2016-10-29] MEDS: AZITHROMYCIN IV 500 MG in NS 250ml 250 ML IV SCH (09:50)
[2016-10-29] MEDS ORDERED: D5W IV SCH (11:00)
[2016-10-29] MEDS ORDERED: POTASSIUM CHLORIDE IV SCH (11:00)
[2016-10-29] MEDS: SALINE FLUSH 10ml SYRINGE IV PRN ×2 (21:36→22:30)
[2016-10-30] MEDS: D5-1/2NS with KCL 20mEq 1,000 ML IV SCH ×3 (02:19→15:55)
[2016-10-30] MEDS: METOCLOPRAMIDE 10mg/2ml INJECTION IVP SCH ×3 (03:24→15:54)
[2016-10-30] MEDS: SALINE FLUSH 10ml SYRINGE IV PRN ×6 (03:24→17:35)
[2016-10-30] MEDS ORDERED: POTASSIUM CHLORIDE IV SCH (09:00)
[2016-10-30] MEDS ORDERED: D5W IV SCH (09:00)
--- NOTE | 2016-10-30 09:07 | XRay Report ---
Indication: SBO PROCEDURE: XR KUB w upright: Encounter: Initial Comparison: None. Findings: The included portions of the lung bases are clear. Heart size normal. No pleural effusion. There is mildly dilated loops of large and probably small bowel predominantly transverse colon and a few loops of small bowel in the left upper abdomen. There is some gas in the rectum. No soft tissue mass or organomegaly. No abnormal calcification. No definite bony destructive process. IMPRESSION: Mildly distended large and small bowel suggesting postoperative ileus. .
--- NOTE | 2016-10-30 09:43 | Progress Note ---
DATE 10/29/2006 POSTOP DAY #5 HISTORY The patient states that her abdominal pain is less today. Her abdominal distention which she felt yesterday also seems less today. The patient did decrease her intake of clear liquid diet yesterday. She did begin having some bowel movements this morning. A couple of these bowel movements have had dark red blood in them. The patient states that she is ambulating quite a bit. INTAKE AND OUTPUT Urine output is still adequate. It has been less for the last two shifts. PHYSICAL EXAMINATION VITAL SIGNS: Temperature is 99.2 degrees Fahrenheit oral. Pulse is 77. Respiratory rate is 18. Blood pressure is 125/78. Oxygen saturation is 99% on room air. ABDOMEN: The abdominal incision looks good. The abdomen is soft. The abdomen is a little bit tympanic, particularly on the left side. LABORATORY DATA White blood cell count is 9700 with no bands. Hemoglobin is 10.8 and hematocrit is 32.1 today. Serum sodium is 138. Serum potassium is 3.2. Serum creatinine is increased at 1.6. IMPRESSION 1. Doing well following exploratory laparotomy, lysis of adhesive band with release of small bowel obstruction and small bowel resection with primary anastomosis on 10/24/2016. 2. Anemia which is improved at this time. 3. Persistent hypokalemia. 4. Postoperative ileus which seems to be improving. PLAN 1. I did tell the patient that she could increase her intake of clear liquid diet today since the ileus seems to be improving and she has begun to have bowel movements and she is feeling better. 2. Correct hypokalemia. I did talk with Wesley Wang in Pharmacy again today and we will give the patient another 50 mEq of potassium chloride in 500 ml of D5W intravenously over five hours today. 3. Continue Reglan and azithromycin as prokinetic agents to help with resolution of the postoperative ileus. 4. Attempt to use intravenous Toradol and oral Tylenol for nonnarcotic pain control. 5. Continue Pepcid for GI prophylaxis. 6. Continue sequential compression devices for deep venous thrombosis prophylaxis. 7. Continue ambulation. MTDD
[2016-10-30] MEDS: FAMOTIDINE PB 20 MG/50 ML BAG IV SCH (10:32)
[2016-10-30] MEDS: ATENOLOL 25 MG TABLET PO SCH (10:37)
[2016-10-30] MEDS: Verapamil SR 120 MG TABLET (12Hr) PO SCH (10:37)
[2016-10-30] MEDS: AZITHROMYCIN IV 500 MG in NS 250ml 250 ML IV SCH (11:37)
--- NOTE | 2016-10-30 11:47 | Progress Note ---
DATE 10/30/2016 POSTOP DAY #6 HISTORY The patient did restrict her intake of clear liquid diet yesterday to attempt to have some of the abdominal pain and bloating resolve. She had worse abdominal pain and bloating again yesterday evening. Rate of administration of intravenous fluids was increased to 100 ml/hour yesterday since the patient was not having much oral intake. The patient states that she feels better today with less abdominal pain and bloating today. The patient continues to pass flatus and have bowel movements. She states that her bowel movements no longer have any blood in them. Bowel movements are loose, as expected. PHYSICAL EXAMINATION VITAL SIGNS: Temperature is 99.2 degrees Fahrenheit oral. Pulse is 76. Respiratory rate is 18. Blood pressure is 135/77. Oxygen saturation is 99% on room air. ABDOMEN: The abdominal incision looks good. The abdomen is soft. There is minimal abdominal distention and tympany. LABORATORY DATA White blood cell count is 10,600 with no bands. Hemoglobin is 9.9. Hematocrit is 30.2. Serum sodium is 137. Serum potassium is 3.4. Serum creatinine is 1.2. IMAGING DATA The patient did have KUB and upright abdominal x-rays performed this morning. They did show an ileus bowel gas pattern. There are a couple of dilated small bowel loops with air-fluid levels present. I did review the images personally with the radiologist. Overall pattern is most consistent with some postoperative ileus. There is quite a bit of gas in the colon. IMPRESSION 1. Doing well overall following exploratory laparotomy, lysis of adhesive band with release of small bowel obstruction and small bowel resection with primary anastomosis on 10/24/2016. 2. Anemia which is stable at this time. 3. Hypokalemia which is improving with potassium chloride supplementation each day. 4. Postoperative ileus. PLAN 1. Continue a clear liquid diet with toast and crackers at this time. When the patient is able to tolerate the clear liquid diet with toast and crackers in increased amounts without exacerbation of abdominal pain and bloating, the diet will be advanced. 2. Correct hypokalemia. The patient will be given another 50 mEq of potassium chloride in 500 ml of D5W intravenously over 5 hours today to continue correction of the hypokalemia. 3. Continue intravenous Reglan and azithromycin as prokinetic agents to help with resolution of the postoperative ileus. 4. I have talked with the patient and nurses about using nonnarcotic analgesics for pain control as much as possible. The patient does have intravenous Toradol and oral Tylenol available for nonnarcotic pain control. 5. Continue Pepcid for GI prophylaxis. 6. Continue sequential compression devices for deep venous thrombosis prophylaxis. 7. I did encourage the patient to be up in the chair more and ambulate more today. MTDD
[2016-10-30] MEDS: ACETAMINOPHEN 500 MG TABLET PO PRN (20:38)
[2016-10-31] MEDS: D5-1/2NS with KCL 20mEq 1,000 ML IV SCH ×2 (02:05→18:10)
[2016-10-31] MEDS: METOCLOPRAMIDE 10mg/2ml INJECTION IVP SCH ×3 (06:16→09:19)
[2016-10-31] MEDS: ATENOLOL 25 MG TABLET PO SCH (09:18)
[2016-10-31] MEDS: Verapamil SR 120 MG TABLET (12Hr) PO SCH (09:18)
[2016-10-31] MEDS: FAMOTIDINE PB 20 MG/50 ML BAG IV SCH ×2 (10:00)
[2016-10-31] MEDS: SALINE FLUSH 10ml SYRINGE IV PRN (10:02)
[2016-10-31] MEDS: AZITHROMYCIN IV 500 MG in NS 250ml 250 ML IV SCH (10:52)
[2016-10-31] MEDS: POTASSIUM CHLORIDE IV SCH ×2 (11:50→15:19)
[2016-10-31] MEDS: D5W IV SCH ×2 (11:50→15:19)
--- NOTE | 2016-10-31 13:43 | Progress Note ---
DATE: 10/31/2016 POSTOP DAY #7 HISTORY The patient is feeling much better today. She is no longer having any abdominal pain or bloating. She is tolerating a clear liquid diet with toast and crackers well. She has been able to increase her oral intake of this diet and continues to feel well. She continues to pass flatus. She continues have multiple loose bowel movements. She is feeling much better overall. She is not taking any analgesics for pain control. She is not having nausea or vomiting. PHYSICAL EXAMINATION VITAL SIGNS: Temperature is 98.7 degrees Fahrenheit oral. Pulse is 70. Respiratory rate is 16. Blood pressure is 144/84. Oxygen saturation is 99% on room air. ABDOMEN: The abdomen is nondistended. The abdominal incision looks good. The abdomen is soft. LABORATORY DATA White blood cell count is 8600 with no bands. Hemoglobin is 8.8. Hematocrit is 27. Serum sodium is 139. Serum potassium is 3.3. Serum creatinine is 0.9. Serum magnesium was checked today and the serum magnesium is 1.8 which is normal. IMPRESSION 1. Doing well following exploratory laparotomy, lysis of adhesive band with release of small bowel obstruction and small bowel resection with primary anastomosis on 10/24/2016. 2. Anemia which is stable at this time. 3. Persistent hypokalemia. 4. Postoperative ileus which appears to be resolving. PLAN 1. Advance diet to full liquid diet with toast and crackers at noon today. If the patient tolerates this, diet will be advanced to regular diet. 2. Decrease rate of infusion of intravenous fluids to 50 mL/hour. 3. Continue to correct hypokalemia. The patient will be given another 50 mEq of potassium chloride in 500 mL of D5W intravenously over 5 hours today to continue correction of the hypokalemia. 4. Continue intravenous azithromycin as a prokinetic agent. 5. Continue Reglan as a prokinetic agent. The intravenous Reglan will be stopped and oral Reglan will be started today. 6. Discontinue Pepcid. 7. Continue sequential compression devices for deep venous thrombosis prophylaxis. 9. Check stool specimen for Clostridium difficile. [facility]
[2016-10-31 16:33] VITALS: O2SAT 100
[2016-11-01] MEDS ORDERED: POTASSIUM CHLORIDE IV SCH (08:45)
[2016-11-01] MEDS ORDERED: D5W IV SCH (08:45)
[2016-11-01] MEDS: AZITHROMYCIN IV 500 MG in NS 250ml 250 ML IV SCH (09:22)
[2016-11-01] MEDS: SALINE FLUSH 10ml SYRINGE IV PRN ×2 (09:23→09:37)
[2016-11-01] MEDS: Verapamil SR 120 MG TABLET (12Hr) PO SCH (09:23)
[2016-11-01] MEDS: ATENOLOL 25 MG TABLET PO SCH (09:23)
[2016-11-01] MEDS: ACETAMINOPHEN 500 MG TABLET PO PRN (13:11)
[2016-11-01] MEDS: Oxycodone *IR* 5 MG TABLET PO PRN (13:53)
--- NOTE | 2016-11-01 14:14 | Discharge Instructions ---
Discharge Plan - Med Rec/Dispo Referrals/Follow Up: Thony Nava MD [Physician] - (Appointment for postop followup office visit given to patient.) Prescriptions: Continue hydroCHLOROthiazide [Hydrochlorothiazide] 25 mg PO DAILY #0 Atenolol 25 mg PO DAILY #0 lovastatin 20 mg tablet 20 mg PO HS tab Verelan (verapamil ER) 120 mg 24 hr capsule 120 mg PO DAILY cap
[2016-11-01 15:09] VITALS: BP 107/65; PULSE 64; RESP 16; TEMP 97.4
--- NOTE | 2016-11-02 07:30 | Progress Note ---
DATE 11/01/2016 POSTOP DAY #8 HISTORY A stool specimen was sent in for Clostridium difficile studies yesterday evening. The Clostridium difficile toxin B test was negative. The serum potassium was rechecked at 2131 hours yesterday after the patient was given 50 mEq of potassium chloride in 500 ml of D5W. Repeat serum potassium at that time was 3.7. The patient is doing well today. She is tolerating a regular diet. She is not using any analgesics. She has no nausea or vomiting. She continues to have some loose bowel movements. She is not having problems at the abdominal incision. She is ambulating well. PHYSICAL EXAMINATION VITAL SIGNS: Temperature is 97.4 degrees Fahrenheit oral. Pulse is 64. Respiratory rate is 16. Blood pressure is 107/65. Oxygen saturation is 100% on room air. ABDOMEN: The abdominal incision looks good. The abdomen is flat and nondistended. The abdomen is soft. LABORATORY DATA White blood cell count was 7900 with no bands this morning. Hemoglobin is 8.9. Hematocrit is 27.3. Serum potassium was 3.4 at 0449 hours this morning. The patient was given an additional 50 mEq of potassium chloride in 500 ml of D5W today. Repeat serum potassium at 1536 hours was 4. Serum creatinine is 0.9 today. IMPRESSION 1. Doing well following exploratory laparotomy, lysis of adhesive band with release of small bowel obstruction and small bowel resection with primary anastomosis on 10/24/2016. 2. Anemia which is stable. 3. Hypokalemia which is now improved. 4. Postoperative ileus which appears to be resolving. TREATMENT I did remove skin marybeht at the abdominal incision today. The right internal jugular vein multilumen central venous catheter was also removed today. PLAN Dismiss patient from [facility] at this time. DISCHARGE MEDICATIONS 1. Atenolol 25 mg one tablet p.o. daily. 2. Hydrochlorothiazide 25 mg one tablet p.o. daily. 3. Lovastatin 20 mg one tablet p.o. daily at bedtime. 4. Verapamil ER 120 mg one extended-release capsule p.o. b.i.d. 5. Reglan 10 mg one p.o. q.i.d. one-half hour before meals and at bedtime ( dispense 60 - refill x 1). 6. Advil 200 mg 2-4 tablets p.o. every 6 hours p.r.n. pain. 7. Tylenol 325 mg 1-2 tablets p.o. every 5 hours p.r.n. pain. DISCHARGE DIET 1. Regular diet. DISCHARGE DISPOSITION Followup office visit with Dr. Nava on 11/08/2016. JUAN
--- NOTE | 2016-11-06 11:28 | Discharge Summary ---
DISCHARGE DIAGNOSES 1. Acute small bowel obstruction with strangulation and necrosis of loop of small bowel due to internal herniation beneath adhesive band 2. Acute anemia due to extensive hemorrhage into ischemic small bowel. 3. Hypokalemia. 4. Postoperative ileus. 5. Hypertension. 6. Hyperlipidemia. 7. Nicotine dependence. 8. Dehydration. OPERATION Placement of right internal jugular multilumen central venous catheter, exploratory laparotomy, lysis of adhesive band with release of small bowel obstruction and small bowel resection with primary anastomosis on 10/24/2016. HOSPITAL COURSE This patient was admitted to [facility] on 10/24/[address] Nava. The patient did have acute abdominal pain at the time of admission to the hospital. Details of history and physical examination findings can be found in the dictated admission history and physical examination report in the chart. White blood cell count was 22,000 at the time of admission to the hospital. Hemoglobin was 13.1. Hematocrit was 38.7. Serum potassium was 3.5 at admission. The patient was noted to have some mild hypokalemia at admission. Serum creatinine was 2.1. Procalcitonin level preoperatively was 0.67. The patient did have a CT scan of the abdomen and pelvis performed on 10/24/[address] scan of the abdomen and pelvis did show an acute small bowel obstruction with a suggestion of swirling at the left upper quadrant mesentery which could represent an internal hernia. There were thick walled small bowel loops. There was a moderate volume of ascites demonstrated. The patient was thought to have acute abdominal pain at the time of admission. The patient was thought to have an acute small bowel obstruction based on the preoperative CT scan appearance. The patient was known to have mild hypokalemia. The patient was known at the time of admission to the hospital to have chronic medical problems including nicotine dependence, hypertension and hyperlipidemia. Plans were made for the patient to undergo exploratory laparotomy. The patient did undergo exploratory laparotomy on 10/24/[address] Nava at [facility]. The patient was found at the time of the operation to have an acute small bowel obstruction with strangulation and necrosis of a loop of small intestine due to internal herniation beneath an adhesive band. The patient did have bloody fluid in the peritoneal cavity. There was a large amount of bloody fluid in the peritoneal cavity. This was thought to be associated with the ischemic necrosis of the loop of small intestine. Details of operative findings can be found in the dictated operative report in the chart. The patient did undergo placement of a right internal jugular multilumen central venous catheter, exploratory laparotomy, lysis of an adhesive band with release of small bowel obstruction and small bowel resection with primary anastomosis. The patient appeared to tolerate the operation well. The patient was transferred from the operating room to the intensive care unit following the operation. Plasma lactate was checked at 2144 hours on the evening of the day of operation and the plasma lactate level was 1.5 at this time. The patient did have some low urine output on the night following the operation. She was given 2 liters of normal saline as fluid challenges overnight and her urine output did improve in response to this. It was thought that the patient probably had some dehydration and hemoconcentration present preoperatively. On the first postoperative day, the patient remained in the intensive care unit. She now had a better urine output following the fluid challenges that she was given during the previous night. She was up in a chair. She was using incentive spirometry. She was alert and oriented. The patient did have a nasogastric tube in place. This was inserted at the time of the operation. The patient was having very little nasogastric tube output. Vital signs were stable. White blood cell count was 25,000 with six bands at 0535 hours on the first postoperative day. Hemoglobin was 8 and hematocrit was 24.9 at 0535 hours. Hemoglobin was 8.1 at 1006 hours. Hemoglobin was 7.6 at 1519 hours. Serum sodium was 140. Serum potassium was 4.2. Serum creatinine was decreased to 1.9. Procalcitonin level was 0.68. Plasma lactate level was 1 on the morning of the first postoperative day. The patient did appear to have resolution of the mild hypokalemia which had been present at admission. The patient did have anemia. It was thought that some of this was due to the extensive hemorrhage associated with the ischemic necrosis of the loop of small intestine. It was thought that the patient had bleeding into the lumen of the small intestine. There was also bloody ascites fluid in the peritoneal cavity. It was also thought that the patient was dehydrated at the time of admission to the hospital from all of the vomiting that she had been doing associated with small bowel obstruction and with third spacing into the peritoneal cavity associated with the ischemic loop of intestine in the peritoneal cavity. It was thought that after rehydration of the patient the hemoconcentration which had been present preoperatively was corrected this did account for some of the drop in hemoglobin. Some of the drop in hemoglobin was thought to be due to the acute bleeding associated with the strangulation and necrosis of the loop of small intestine. The patient was kept in the intensive care unit. The hemoglobin continued to be monitored closely. Pepcid was being used for GI prophylaxis at this time. Sequential compression devices were being used for deep venous thrombosis prophylaxis. Lovenox was not used yet at this time because of concern about the low hemoglobin and hematocrit and the possibility the patient could be having some postoperative bleeding. Hemoglobin was 7.3 at 2144 hours on 10/25/2016. Hemoglobin was 6.9 and hematocrit was 21.5 at 0512 hours on the second postoperative day. The patient was transfused with one unit of packed red blood cells at this time. Hemoglobin was 8.7 at 1040 hours at a time 1/2 hour following completion of the transfusion. The patient was up in the chair. The patient was using incentive spirometry. The patient did begin passing flatus on the second postoperative day. The urine output was very good. The patient had 1180 mL of urine output during one 8 hour shift. The patient had 1370 mL of urine output during another 8 hour shift. The patient had 300 mL of nasogastric tube output during one 8 hour shift. The patient had 200 mL of output from the nasogastric tube during another 8 hour shift. Vital signs were stable. The abdominal incision looked good. White blood cell count was 11,800 with no bands on the morning of the second postoperative day. Hemoglobin was 9.2 at 1654 hours. Serum potassium was 3.6. Serum creatinine was 1. Monitoring of the patient in the intensive care unit was continued. The plan was to continue this until the hemoglobin and hematocrit became stable to be sure the patient was not having any postoperative intraabdominal bleeding. Pepcid was continued for GI prophylaxis. Sequential compression devices were continued for deep venous thrombosis prophylaxis. Lovenox was held yet at this time because of concern about possible postoperative intraabdominal bleeding. The Egan catheter was discontinued on the second postoperative day. The nasogastric tube was discontinued on the second postoperative day. Rate of administration of intravenous fluids was decreased to 75 mL/hour since the patient was having so much urine output. It was thought that the patient was adequately hydrated at this time. Oral antihypertensive medications were resumed on the evening of the second postoperative day because the blood pressure of the patient was increasing at this time. These were oral antihypertensive medications which the patient had been taking prior to the hospitalization. On the third postoperative day, the patient was using incentive spirometry. The patient was walking in the intensive care unit. She did continue to pass some flatus at this time. Urine output was good. Vital signs were stable. The abdominal incision looked good. White blood cell count was 11,600 with no bands. Hemoglobin was 9.9. Hematocrit was 29.6. Serum potassium was 3.4. Serum creatinine was 0.8. The anemia appeared to be improving. The patient had some recurrent mild hypokalemia at this time. The patient was transferred from the intensive care unit out to a room on the surgical unit on the third postoperative day. Pepcid was continued for GI prophylaxis. Sequential compression devices were continued for deep venous thrombosis prophylaxis. A clear liquid diet with toast and crackers was started on the third postoperative day. Rate of administration of intravenous fluids was decreased even further to 50 mL/hour at this time. On the fourth postoperative day, the patient was having more abdominal pain. She was having nausea. This had all started since the clear liquid diet was started on the previous day. The patient did continue to pass some flatus. The patient continued to have good urine output. Vital signs were stable. The abdominal incision looked good. White blood cell count was 9200 with no bands. Hemoglobin was 9.5. Hematocrit was 28.8. Serum potassium was 3.1. Serum creatinine was 1.1. The hypokalemia was noted to be a little bit worse. The anemia was stable. It was thought the patient was experiencing some postoperative ileus. The patient was instructed to decrease intake of clear liquid diet with toast and crackers since her abdominal pain had worsened and her nausea had appeared following initiation of an oral diet on the previous day. The patient was given 50 mEq of potassium chloride in 500 mL of D5W over 5 hours to correct the hypokalemia. Reglan 10 mg IV every 6 hours and azithromycin 250 mg IV every 24 hours were started as prokinetic agents at this time to help with the resolution of the postoperative ileus. It was thought that the Reglan would also help with nausea control. The patient had been receiving Motrin. The Motrin was stopped and intravenous Toradol was started for better nonnarcotic pain control. Pepcid was continued. Sequential compression devices were continued for deep venous thrombosis prophylaxis. Ambulation of the patient was encouraged. On the fifth postoperative day, the patient stated that her abdominal pain was less. The patient felt that her abdominal distention was less. The patient did decrease her clear liquid diet on the previous day. She did begin having some bowel movements on the morning of the fifth postoperative day. A couple of these bowel movements had some dark red blood in them. The patient was ambulating quite a bit. Urine output was adequate. Vital signs were stable. The abdominal incision looked good. The abdomen was soft. The abdomen was a little bit tympanic. White blood cell count was 9700 with no bands. Hemoglobin was 10.8. Hematocrit was 32.1. Serum potassium was 3.2. Serum creatinine was 1.6. The anemia was improved. The patient had persistent hypokalemia. The postoperative ileus appeared to be improving. The patient was told that she could increase her intake of clear liquid diet on the fifth postoperative day since her ileus seemed to be improving and since she had begun having bowel movements. The patient was given another 50 mEq of potassium chloride in 500 mL of D5W intravenously over 5 hours to attempt to correct the hypokalemia. Reglan and azithromycin were continued as prokinetic agents. Intravenous Toradol and oral Tylenol were continued for nonnarcotic pain control. Pepcid was continued for GI prophylaxis. Sequential compression devices were continued for deep venous thrombosis prophylaxis. The patient did feel that her abdominal pain and bloating was worse again on the evening of the fifth postoperative day. She restricted her intake of clear liquids again. Rate of administration of intravenous fluids was increased on the evening of the fifth postoperative day since the patient was not having much oral intake at this time. The patient did feel better and was having less abdominal pain and bloating on the sixth postoperative day. The patient continued to pass flatus and have bowel movements. She reported that her bowel movements no longer had any blood in them. The bowel movements were loose, as expected. Vital signs were stable. The patient was afebrile. The abdominal incision looked good. The abdomen was soft. There was only minimal abdominal distention and tympany present at exam. White blood cell count was 10,600 with no bands. Hemoglobin was 9.9. Hematocrit was 30.2. Serum potassium was 3.4. Serum creatinine was 1.2. The patient did undergo KUB and upright abdominal x-rays on the morning of the sixth postoperative day. These did show an ileus bowel gas pattern. There were a couple of dilated small bowel loops with air-fluid levels present. The overall pattern was thought to be consistent with postoperative ileus. There was quite a bit of gas in the colon. It was thought that the anemia was stable. It was thought that the hypokalemia was improving. The patient continued to have some postoperative ileus. The patient was continued on a clear liquid diet with toast and crackers. The patient was given another 50 mEq of potassium chloride in 500 mL of D5W over 5 hours to correct the hypokalemia. Intravenous Reglan and azithromycin were continued as prokinetic agents to help with resolution of the postoperative ileus. Pepcid was continued. Sequential compression devices were continued. The patient was feeling much better on the seventh postoperative day. She was no longer having any abdominal pain or bloating. She was tolerating a clear liquid diet with toast and crackers. She continued to pass flatus. She continued to have multiple loose bowel movements. She was not taking any analgesics for pain control. She was not have any nausea or vomiting. The patient was afebrile. Vital signs were stable. The abdomen was soft and nondistended. The abdominal incision looked good. White blood cell count was 8600 with no bands. Hemoglobin was 8.8. Hematocrit was 27. Serum potassium was 3.3. Serum creatinine was 0.8. Serum magnesium was checked on the seventh postoperative day and the serum magnesium was 1.8, which was normal. The anemia appeared to be stable. The patient was having some persistent hypokalemia. The postoperative ileus appeared to be improving. Diet was advanced to a full liquid diet with toast and crackers at noon. Diet was advanced to a regular diet by evening. Rate of administration of intravenous fluids was again decreased to 50 mL/hour. The patient was given another 50 mEq of potassium chloride in 500 mL of D5W intravenously over 5 hours to correct the hypokalemia. Intravenous azithromycin was continued. Reglan was also continued. Reglan was switched from intravenous to oral administration. Pepcid was discontinued. Sequential compression devices were continued. A stool specimen was submitted for Clostridium difficile studies on the evening of the seventh postoperative day. The Clostridium difficile toxin B test was negative. Serum potassium was checked at 2131 hours on the seventh postoperative day and the repeat serum potassium was 3.7 at this time. On the eighth postoperative day, the patient was doing well. She was tolerating a regular diet. She was not using any analgesics. She had no nausea or vomiting. She continued to have some loose bowel movements. Vital signs were stable. The abdominal incision looked good. White blood cell count was 7900 with no bands. Hemoglobin was 8.9. Hematocrit was 27.3. Serum potassium was 3.4 at 0449 hours. The patient was given an additional 50 mEq of potassium chloride in 500 mL of D5W. Repeat serum potassium at 1536 hours was 4. Serum creatinine was 0.9 on the eighth postoperative day. The anemia appeared to be stable. The hypokalemia was improved. The postoperative ileus appeared to be resolving. Dr. Nava did remove skin marybeth at the abdominal incision on the eighth postoperative day. The right internal jugular vein multilumen central venous catheter which had been inserted at the time of the operation at the beginning of the hospitalization was removed at this time. The patient was dismissed from [facility] in stable condition on the eighth postoperative day. I did receive a pathology report on the segment of small bowel submitted at the time of the operation performed on 10/24/2016. The pathology report did show a diagnosis of focal marked ischemic changes of bowel wall with extensive recent hemorrhage. There was no atypia or neoplasm identified. DISCHARGE MEDICATIONS 1. Atenolol 25 mg one tablet p.o. daily 2. Hydrochlorothiazide 25 mg one tablet p.o. daily 3. Lovastatin 20 mg one tablet p.o. daily at bedtime. 4. Verapamil ER 120 mg one extended-release capsule p.o. b.i.d. 5. Reglan 10 mg one p.o. q.i.d. 1/2 hour before meals and at bedtime (dispense 60 - refill x 1). 6. Advil 200 mg 2-4 tablets p.o. every 6 hours p.r.n. pain. 7. Tylenol 325 mg 1-2 tablets p.o. every 5 hours p.r.n. pain. DISCHARGE DIET Regular diet. DISCHARGE DISPOSITION Followup office visit with Dr. Nava on 11/08/2016. [facility]
== END 2016-11-01 17:30 | disposition home or self-care (01) | DRG 329 ==
LOC: ED 13:31 → SRG 15:59 → CCU 20:43 → SRG 10-27 15:54
PROVIDERS: ADMIT Surgery; ATTEND Surgery

== ENCOUNTER 2016-11-25 12:28 | Inpatient (IN) ==
[2016-11-25] MEDS ORDERED: SALINE FLUSH 10ml SYRINGE IVF PRN (12:51)
--- NOTE | 2016-11-25 13:23 | Emergency Department Report ---
General Adult HPI - General Chief complaint: Abdominal Pain Stated complaint: pain post surgery Time Seen by Provider: 11/25/16 12:50 Source: patient Mode of arrival: ambulatory Limitations: no limitations - History of Present Illness HPI narrative: 56-year-old female presents to the emergency department with a chief complaint of postoperative abdominal discomfort following abdominal surgery with Dr. Nava on 10/24/2016. Patient states that she has been improving and feeling better over the past few days but noted increasing discomfort recently. She denies any vomiting or diarrhea. She describes her discomfort as moderate. Discomfort is dull. It is in the lower abdomen near her surgical incision locally. No radiation. Patient denies any other complaints or associated symptoms. She was at home when her symptoms began. Symptoms have been persistent in nature since onset. - Related Data Home Medications Medication Instructions Recorded Confirmed Atenolol 25 mg PO DAILY #0 08/19/14 11/25/16 hydroCHLOROthiazide 25 mg PO DAILY #0 08/19/14 11/25/16 [Hydrochlorothiazide] Verelan (verapamil ER) 120 mg 24 120 mg PO DAILY cap 10/25/16 11/25/16 hr capsule lovastatin 20 mg tablet 20 mg PO HS tab 10/25/16 11/25/16 Previous Rx's Medication Instructions Recorded K-Tab (potassium chloride ER) 20 20 meq PO BID #60 tab 11/08/16 mEq tablet Allergies Allergy/AdvReac Type Severity Reaction Status Date / Time No Known Allergies Allergy Verified 11/25/16 12:59 Review of Systems Constitutional: Denies: fever, chills Eyes: Denies: eye pain, vision change ENT: Denies: ear pain, throat pain Cardiovascular: Denies: chest pain, palpitations Respiratory: Denies: cough, dyspnea Gastrointestinal: Reports: abdominal pain. Denies: nausea, vomiting, diarrhea Genitourinary: Denies: urgency, dysuria Integumentary: Denies: erythema, rash Neurological: Denies: headache, numbness Psychiatric: Denies: anxiety, depression Endocrine: Denies: fatigue, heat or cold intolerance Hematological/Lymphatic: Denies: easy bleeding, easy bruising Allergic/Immunologic: Denies: facial swelling, urticaria PFSH Patient Stated Medical History Hypertension Yes Sleep Apnea No Post Menopausal Yes Surgical History: Abdominal surgery Family History: Reviewed and noncontributory - Social History Smoking status: Current some day smoker Substance use type: does not use Alcohol intake frequency: former alcohol drinker Physical Exam - Limitations Limitations: no limitations - General General appearance: alert, in no apparent distress - Normal Exams: Head:: Normocephalic without trauma Eyes:: Pupils are PERRLA w/ EOMI, No scleral icterus, irritation, or foreign bodies noted ENMT:: No facial trauma, nasal exudates, pharyngeal erythema, or exudates are noted Dental: No fractured, loose, or missing teeth noted Neck:: Full range of motion, without adenopathy, JVD, bruits or thyromegaly Chest/Respirations:: Clear all rodgers, with good airflow, and symmetry bilaterally Cardiovascular:: Regular rate and rhythm, without murmur or gallop, Pulses 2+ all extremities, capillary refill, <2 seconds all extremities Abdomen:: Bowel sounds positive, soft, non-tender, non-distended, no hepatosplenomegaly, masses or bruits noted (Surgical incision shows mild surrounding erythema and is intact. A moderate amount of purulent material was expressed from the incision site. ) Lymphatic:: No lymphadenopathy, or lymphedema noted Musculoskeletal:: No tenderness, or deformity noted, good range of motion, all extremities Integumentary:: No rashes, hives, or bruising noted, hair and nails, without abnormality Neurological:: Patient is alert, and oriented, cranial nerves, motor/sensory/ cerebellar, exams w/o gross deficits, to observation Psychiatric:: Patient exhibits, appropriate attention, emotion and affect Course Vital Signs Temperature 99.6 F 11/25/16 12:30 Pulse Rate 99 11/25/16 12:30 Respiratory Rate 20 11/25/16 12:30 Blood Pressure 148/90 H 11/25/16 12:30 Pulse Oximetry 98 11/25/16 12:30 Temperature 99.6 F 11/25/16 12:30 Pulse Rate 99 11/25/16 12:30 Respiratory Rate 20 11/25/16 12:30 Blood Pressure 148/90 H 11/25/16 12:30 Pulse Oximetry 98 11/25/16 12:30 Medical Decision Making - MDM Narrative Medical decision making narrative: Labs/imaging were discussed in detail with the patient and family and questions are answered. Patient was given gentle IV hydration. Patient was given parental narcotic and antiemetic medications intravenously with improvement of symptoms. Patient surgeon Dr. Nava was contacted and comes to the ED to evaluate the patient. At 1530 Zosyn was ordered after CT results were reviewed and showed a probable abscess underlying the surgical incision. Blood Cultures and lactic acid were drawn prior to initiation of antibiotic therapy. Patient is admitted to the service of Dr. Nava in improved condition. Patient and family are in agreement with the current plan of management. Patient is admitted to the hospital in improved condition. No further orders from accepting physician who is in agreement with the current plan of management. Zosyn was ordered at 1530 when sepsis was considered. - Differential Diagnosis abscess, post-op pain, sbo, UTI - Lab Data Result diagrams: 11/25/16 13:07 11/25/16 13:07 Lab Results 11/25/16 11/25/16 11/25/16 Range/Units 13:07 13:07 13:14 WBC 20.2 H (4.5-11.0) T/MM3 RBC 3.04 L (4.00-5.20) M/MM3 Hgb 9.3 L (12-16) GM/DL Hct 28.4 L (36-46) % MCV 93.4 (80-100) UM3 MCH 30.6 (26-34) UUG MCHC 32.7 (31-37) GM/DL RDW Std Deviation 47.1 (36.9-50.2) FL Plt Count 491 H (130-400) T/MM3 MPV 9.7 (9.4-12.4) UM3 Immature Gran % (Auto) Not performed Neut % (Auto) Not performed Lymph % (Auto) Not performed Christian % (Auto) Not performed Eos % (Auto) Not performed Baso % (Auto) Not performed Neut # (Auto) Not performed Lymph # (Auto) Not performed Christian # (Auto) Not performed Eos # (Auto) Not performed Baso # (Auto) Not performed Abs Immat Gran (auto) Not performed Neutrophils % (Manual) 83.0 H (33-66) % Lymphocytes % (Manual) 11.0 L (23-45) % Monocytes % (Manual) 5.0 (0-9.0) % Eosinophils % (Manual) 1.0 (0-4) % Neutrophils # (Manual) 16.8 H (1.8-7.7) T/MM3 Lymphocytes # (Manual) 2.2 (1-4.8) T/MM3 Abs React Lymphs (Man) 1.0 H (0-0) T/MM3 Monocytes # (Manual) 1.0 H (0-0.8) T/MM3 Eosinophils # (Manual) 0.2 (0-0.5) T/MM3 RBC Morph Comment Normal Turbidity < 20 (0-20) Sodium 148 H (134-144) MEQ/L Potassium 3.0 L (3.6-5) MEQ/L Chloride 109 H (98-107) MEQ/L Carbon Dioxide 19 L (22-30) MEQ/L Anion Gap 20 H (5-15) MEQ/L BUN 16.0 (7-17) MG/DL Creatinine 1.2 (0.7-1.2) MG/DL GFR Calculation 46 BUN/Creatinine Ratio 13 (6-26) RATIO Glucose 88 (65-110) MG/DL Calculated Osmolality 284 H (261-280) MOSM/KG Calcium 9.8 (8.4-10.2) MG/DL Total Bilirubin 0.20 (0.20-1.30) MG/DL Icterus Index < 2 (0-7) AST 15 (14-36) U/L ALT 24 (9-52) U/L Alkaline Phosphatase 76 (38-126) U/L Total Protein 7.5 (6.3-8.2) G/DL Albumin 3.9 (3.5-5.0) G/DL Globulin 3.6 (2.4-3.6) G/DL Albumin/Globulin Ratio 1.1 (1.1-2.2) RATIO Lipase 103 (23-300) U/L Plasma Lactate (0.6-2.2) MMOL/L Procalcitonin NG/ML Specimen Hemolysis < 15 (0-25) Ur Collection Type Urine, clean catch Urine Color Yellow (YELLOW) Urine Clarity Clear Urine pH 6.0 (5.0-8.0) Ur Specific [place] 1.020 (1.015-1.025) Urine Protein Negative (NEGATIVE) Urine Glucose (UA) Negative (NEGATIVE) Urine Ketones 1+ A (NEGATIVE) Urine Occult Blood Trace-intact (NEGATIVE) Urine Nitrate Negative (NEGATIVE) Urine Bilirubin Negative (NEGATIVE) Urine Urobilinogen 0.2 (NORMAL) EU/DL Ur Leukocyte Esterase Negative (NEGATIVE) Urinalysis Comment Microscopic not ind. Urine Test (Negative) 11/25/16 11/25/16 11/25/16 Range/Units 13:14 13:42 13:42 WBC (4.5-11.0) T/MM3 RBC (4.00-5.20) M/MM3 Hgb (12-16) GM/DL Hct (36-46) % MCV (80-100) UM3 MCH (26-34) UUG MCHC (31-37) GM/DL RDW Std Deviation (36.9-50.2) FL Plt Count (130-400) T/MM3 MPV (9.4-12.4) UM3 Immature Gran % (Auto) Neut % (Auto) Lymph % (Auto) Christian % (Auto) Eos % (Auto) Baso % (Auto) Neut # (Auto) Lymph # (Auto) Christian # (Auto) Eos # (Auto) Baso # (Auto) Abs Immat Gran (auto) Neutrophils % (Manual) (33-66) % Lymphocytes % (Manual) (23-45) % Monocytes % (Manual) (0-9.0) % Eosinophils % (Manual) (0-4) % Neutrophils # (Manual) (1.8-7.7) T/MM3 Lymphocytes # (Manual) (1-4.8) T/MM3 Abs React Lymphs (Man) (0-0) T/MM3 Monocytes # (Manual) (0-0.8) T/MM3 Eosinophils # (Manual) (0-0.5) T/MM3 RBC Morph Comment Turbidity (0-20) Sodium (134-144) MEQ/L Potassium (3.6-5) MEQ/L Chloride (98-107) MEQ/L Carbon Dioxide (22-30) MEQ/L Anion Gap (5-15) MEQ/L BUN (7-17) MG/DL Creatinine (0.7-1.2) MG/DL GFR Calculation BUN/Creatinine Ratio (6-26) RATIO Glucose (65-110) MG/DL Calculated Osmolality (261-280) MOSM/KG Calcium (8.4-10.2) MG/DL Total Bilirubin (0.20-1.30) MG/DL Icterus Index (0-7) AST (14-36) U/L ALT (9-52) U/L Alkaline Phosphatase (38-126) U/L Total Protein (6.3-8.2) G/DL Albumin (3.5-5.0) G/DL Globulin (2.4-3.6) G/DL Albumin/Globulin Ratio (1.1-2.2) RATIO Lipase (23-300) U/L Plasma Lactate 0.8 (0.6-2.2) MMOL/L Procalcitonin 0.06 NG/ML Specimen Hemolysis (0-25) Ur Collection Type Urine Color (YELLOW) Urine Clarity Urine pH (5.0-8.0) Ur Specific [place] (1.015-1.025) Urine Protein (NEGATIVE) Urine Glucose (UA) (NEGATIVE) Urine Ketones (NEGATIVE) Urine Occult Blood (NEGATIVE) Urine Nitrate (NEGATIVE) Urine Bilirubin (NEGATIVE) Urine Urobilinogen (NORMAL) EU/DL Ur Leukocyte Esterase (NEGATIVE) Urinalysis Comment Urine Test Negative (Negative) - Radiology Data CT ABD / PELVIS: Findings consistent with abscess underlying the surgical incision superficially otherwise no acute processes. Disposition Clinical Impression: Abscess Abdominal pain Qualifiers: Abdominal location: unspecified location Qualified Code(s): R10.9 - Unspecified abdominal pain Cellulitis Qualifiers: Site of cellulitis: trunk Site of cellulitis of trunk: abdominal wall Qualified Code(s): L03.311 - Cellulitis of abdominal wall Disposition: To [facility] [place] Acute Care Condition: Improved Time of Disposition: 15:30 (Admit. Dr. Nava. ) - Seen By: physician
[2016-11-25] MEDS ORDERED: NS 100 ML ONE (14:20)
[2016-11-25] MEDS ORDERED: IOHEXOL 300mg/ml 75ml INJECTION ONE (14:20)
[2016-11-25] MEDS ORDERED: SALINE FLUSH 10ml SYRINGE ONE (14:21)
[2016-11-25] MEDS ORDERED: NS 1,000 ML IV ONE (14:50)
[2016-11-25] MEDS ORDERED: PIPERACILLIN/TAZOBACTAM 4.5 GM in NS 100 ML IV ONE (15:30)
[2016-11-25] MEDS ORDERED: FentaNYL 100 MCG/2 ML INJECTION IVP ONE ×2 (15:41→16:24)
[2016-11-25] MEDS ORDERED: ONDANSETRON 4 MG/2 ML INJECTION IVP ONE (15:41)
[2016-11-25] MEDS ORDERED: LIDOCAINE 1% (10mg/ml) 30ml SDV INJ INFIL ONE (15:49)
[2016-11-25] MEDS ORDERED: SILVER NITRATE APPLICATOR TOP ONE (16:20)
[2016-11-25 17:08] VITALS: BMI 21.2
[2016-11-25] MEDS ORDERED: ACETAMINOPHEN 500 MG TABLET PO PRN (17:48)
[2016-11-25] MEDS ORDERED: IBUPROFEN 200 MG TABLET PO PRN (17:48)
[2016-11-25] MEDS ORDERED: ONDANSETRON 4 MG/2 ML INJECTION IVP PRN (17:48)
[2016-11-25] MEDS ORDERED: PIPERACILLIN/TAZOBACTAM 3.375 GM in NS 100 ML IV SCH (18:00)
[2016-11-25] MEDS: LR 1,000 ML IV SCH (18:04)
[2016-11-25] MEDS: MORPHINE SULFATE 10 MG SYRINGE IV PRN (18:04)
[2016-11-25] MEDS: Oxycodone *IR* 5 MG TABLET PO PRN ×2 (19:33→23:10)
[2016-11-25] MEDS: LOVASTATIN 20 MG TABLET PO SCH (21:59)
[2016-11-25] MEDS: PIPERACILLIN/TAZOBACTAM 3.375 GM in NS 100 ML IV SCH (21:59)
[2016-11-26] MEDS: PIPERACILLIN/TAZOBACTAM 3.375 GM in NS 100 ML IV SCH ×4 (03:33→20:52)
[2016-11-26] MEDS: Oxycodone *IR* 5 MG TABLET PO PRN ×6 (05:13→23:02)
[2016-11-26] MEDS ORDERED: INFLUENZA VAC. INJ. ADMIN CHARGE INJ ONE (07:45)
[2016-11-26] MEDS: ATENOLOL 25 MG TABLET PO SCH (08:33)
--- NOTE | 2016-11-26 09:20 | CT Scan Report ---
Indication: Post-op Pain PROCEDURE: CT abdomen pelvis w con: Encounter: Initial Comparison: October 24, 2016 Technique: Axial CT images were performed through the abdomen and pelvis after the administration of intravenous contrast. Coronal and sagittal two-dimensional reformats. Automated Exposure Control and Iterative Reconstruction dose reducing techniques were utilized. Contrast: Omnipaque 300 67 mL Findings: The lung bases are clear. The liver shows small cysts or hemangiomas but no enhancing mass. No bile duct dilatation. The gallbladder is unremarkable. The spleen, pancreas and adrenal glands are within normal limits. The kidneys are normal. Induration, inflammation and small amount of fluid along the patient's midline incision. No evidence of a small bowel obstruction currently. Large amount of stool in the rectosigmoid colon. Uterus is unremarkable. No free air. Bone windows are unremarkable. Impression: Significant inflammation in the subcutaneous tissues along the patient's surgical incision line. This could represent seroma, hematoma and/or abscess. A discrete drainable loculated abscess is not seen however. Inflammation extends over approximately 8.5 cm craniocaudally. There is a preliminary report by [facility]. .
[2016-11-26] MEDS ORDERED: INFLUENZA VAC QIV 2017-18 (Fluarix*)(>=3yo) 0.5ml IM ONE (11:57)
[2016-11-26] MEDS: LR 1,000 ML IV SCH (15:58)
[2016-11-26] MEDS: LOVASTATIN 20 MG TABLET PO SCH (20:53)
[2016-11-27] MEDS: MORPHINE SULFATE 10 MG SYRINGE IV PRN ×4 (02:53→15:25)
[2016-11-27] MEDS: PIPERACILLIN/TAZOBACTAM 3.375 GM in NS 100 ML IV SCH ×2 (03:11→08:29)
--- NOTE | 2016-11-27 07:13 | History and Physical ---
HISTORY OF PRESENT ILLNESS This patient is 56 years old This patient underwent placement of a right internal jugular multilumen central venous catheter, exploratory laparotomy, lysis of adhesive band with release of small bowel obstruction and small bowel resection with primary anastomosis on 10/24/[address] Nava at [facility]. Postoperative diagnosis was acute small bowel obstruction with strangulation and necrosis of loop of small bowel due to internal herniation beneath adhesive band. The patient was hospitalized at [facility] from 10/24/2016 to 11/01/2016. The patient was afebrile at the time of discharge from the hospital. The white blood cell count for the patient was 7900 with no bands on 11/01/2016 on the day that the patient was dismissed from the hospital. The patient had a postoperative office visit on 11/08/[address] Nava. The abdominal incision looked good at this time. The patient did call into the office on 11/14/2016 and state that she had been experiencing some lower abdominal midline pain for the previous two days. The patient was eating and drinking without any difficulty. She was not having any difficulty with urination or defecation. The patient did have a CBC performed on 11/14/2016. White blood cell count was 14,200 with no bands. KUB and upright abdominal x-rays were performed on 11/14/2016. These did show a dilated small bowel loop at the left abdomen. There was some scattered colonic gas present all the way down to the level of the rectum. There were some small air- fluid levels present. There was some suggestion of bowel wall edema at the left abdomen. The overall appearance of the bowel gas pattern was improved compared to the last previous KUB and upright abdominal x-rays which were performed on . The patient did have a urinalysis performed on 11/15/2016. The urinalysis was unremarkable. The patient did have another CBC performed on 11/17/2016. White blood cell count was 10,900 with no bands at that time. A followup call was made to the patient from the office of Dr. Nava on 11/22/2016. The patient reported that she had some intermittent midline lower abdominal pain. It was worse on some days and better on other days. The abdominal pain had been a little worse on . The patient was doing much better and having less abdominal pain on 11/22/2016. The patient did began experiencing increasingly severe midline lower abdominal pain on 11/23/2016, 11/24/2016 and 11/25/2016. The patient did come into [facility] Emergency Room for evaluation on 11/25/2016. Examination of the patient at this time revealed tenderness and swelling at the midline vertically oriented abdominal incision at a level inferior to the umbilicus. White blood cell count was 20,200. A CT scan of the abdomen and pelvis was performed at [facility] at the time of the emergency room evaluation on 11/25/2016. This CT scan of the abdomen and pelvis showed a complex fluid collection at the midline anterior abdominal wall. There was edema around this area. It was thought that that this subcutaneous fluid collection could represent an abscess, seroma or resolving hematoma. The fluid collection was 3 cm by 3 cm x 9 cm in size. As the emergency room physician examined the midline vertically oriented abdominal incision at a level inferior to the umbilicus and pressed on the skin around the incision, some pus did begin flowing out from the incision. It did appear the patient had a subcutaneous wound infection. Dr. Nava did come in and see the patient at [facility] Emergency Room on 11/25/2016. The patient had redness and tenderness and fluctuance at the midline vertically oriented abdominal incision at a level inferior to the umbilicus. The patient appeared to have a subcutaneous wound infection. Incision and drainage of the subcutaneous wound infection was performed at the emergency room by Dr. Nava on 11/25/2016. There is quite a bit of cellulitis at the skin and subcutaneous tissue around the subcutaneous wound infection. The patient is being admitted to [facility] at this time for management of the open wound at the midline vertically oriented abdominal incision and also to receive intravenous antibiotics for treatment of the extensive cellulitis at the anterior abdominal wall. PAST MEDICAL HISTORY Previous Operations: 1. Removal of wisdom teeth at some time in the early at [place], [place]. 2. Removal of cyst from left foot at some time in the at [place], [place]. 3. Placement of right internal jugular multilumen central venous catheter, exploratory laparotomy, lysis of adhesive band with release of small bowel obstruction and small bowel resection with primary anastomosis on 10/24/[address] Nava at [facility] at [place], [place]. The main discharge diagnosis for this hospitalization was acute small bowel obstruction with strangulation and necrosis of loop of small bowel due to internal herniation beneath adhesive band. Another discharge diagnosis was acute anemia due to extensive hemorrhage into ischemic small bowel. Additional discharge diagnoses were hypokalemia, postoperative ileus, hypertension, hyperlipidemia, nicotine dependence and dehydration. Other Current Medical Problems: 1. Hypertension. 2. Hyperlipidemia. SOCIAL HISTORY The patient lives in [place], [place]. The patient is unemployed. The patient is . CURRENT MEDICATIONS 1. Atenolol 25 mg one tablet p.o. daily. 2. Hydrochlorothiazide 25 mg one tablet p.o. daily 3. Lovastatin 20 mg one tablet p.o. daily at bedtime. 4. Verapamil ER 120 mg one extended-release capsule p.o. b.i.d. 5. Reglan 10 mg one tablet p.o. q.i.d. 1/2 hour before meals and at bedtime. 6. Potassium chloride 20 mEq one tablet p.o. b.i.d. ALLERGY HISTORY The patient states she has no known allergies to medications. PHYSICAL EXAMINATION VITAL SIGNS: Temperature is 98.9 degrees Fahrenheit oral. Pulse is 89. Respiratory rate is 18. Blood pressure is 119/68. Oxygen saturation is 98% on room air. HEAD, EYES, EARS, NOSE AND THROAT: No abnormalities noted. NECK: No neck masses. CHEST: Lung sounds are clear. BREASTS: Not examined. HEART: Regular rhythm. No murmurs. ABDOMEN: The patient does have a recent midline vertically oriented upper and lower abdominal incision. At the time of initial examination in the emergency room the patient did have a 12 cm x 8 cm area of redness and tenderness and fluctuance centered around the midline vertically oriented abdominal incision at a level inferior to the umbilicus. There were a couple of tiny openings at the incision with pus coming out through these openings. RECTUM: Exam deferred. EXTREMITIES: No abnormalities noted. LABORATORY DATA White blood cell count is 20,200 with 83% neutrophils and 11% lymphocytes. Hemoglobin is 9.3. Hematocrit is 28.4. Serum sodium is 148. Serum potassium is 3. Serum creatinine is 1.2. Procalcitonin is 0.06. Plasma lactate is 0.8. IMAGING DATA This patient did have a CT scan of the abdomen and pelvis performed at [facility] on 11/25/2016. This does show a 3 cm x 3 cm x 9 cm subcutaneous fluid collection at the anterior abdominal wall at a level inferior to the umbilicus at the midline. There is surrounding subcutaneous edema. IMPRESSION 1. Subcutaneous abscess at midline abdominal incision at a level inferior to the umbilicus. 2. Cellulitis around subcutaneous abscess at anterior abdominal wall. 3. Anemia. 4. Hypokalemia. 5. Hypertension. 6. Hyperlipidemia. PLAN 1. The patient will be admitted for intravenous antibiotic treatment of the extensive cellulitis around the subcutaneous abscess at the anterior abdominal wall. The patient will receive some initial treatment with intravenous Zosyn. 2. Await cultures on the pus which was drained from the subcutaneous abscess at the anterior abdominal wall. Antibiotics can be changed depending on culture results. 3. Management of open wound at midline vertically oriented abdominal incision below level of the umbilicus. The wound is initially being packed open with some normal saline-soaked 4 x 4 gauze dressings. We may need to transition to a wound VAC later during this hospitalization for management of this open wound. 4. Correct hypokalemia. 5. Pain control at the subcutaneous abscess incision and drainage site. 6. Sequential compression devices for deep venous thrombosis prophylaxis. 7. Evaluate anemia. MTDD
--- NOTE | 2016-11-27 08:14 | Progress Note ---
DATE 11/26/2016 HISTORY The patient is having much less lower abdominal midline pain following incision and drainage of the subcutaneous abscess at the lower abdomen wall on 2016. PHYSICAL EXAMINATION VITAL SIGNS: Temperature is 97.3 degrees Fahrenheit oral. Pulse is 78. Respiratory rate is 16. Blood pressure is 124/77. Oxygen saturation is 98% on room air. ABDOMEN: The patient does have an open wound at the lower abdomen at the midline at the site where she underwent incision and drainage of a subcutaneous abscess at the abdominal wall on 11/25/2016. This open wound following the incision and drainage procedure is 9 cm long in a [id number] direction. It is 2 cm wide in a [id number] direction. The wound is 3 cm deep at the deepest point. The open wound looks good this morning. The fascia at the base of the wound appears to be intact. I do not see any communication of the subcutaneous abscess with the peritoneal cavity. The wound is packed open with normal saline soaked 4 x 4 gauze dressings at this time. LABORATORY DATA White blood cell count is 13,900 this morning. Hemoglobin is 7.3. Hematocrit is 22.7. There are no bands. Serum sodium is 143. Serum potassium is 2.6. Serum chloride is 108. Serum creatinine is 1. Preliminary culture results on pus drained from the subcutaneous abscess at the abdominal wall show that the culture is growing out Staphylococcus aureus. Blood culture results are still pending. IMPRESSION 1. Doing well following incision and drainage of subcutaneous abscess at anterior abdominal wall on 11/25/2016. 2. Hypokalemia. 3. Severe anemia. PLAN 1. Continue intravenous Zosyn antibiotic treatment for the cellulitis around the subcutaneous abscess site at the anterior abdominal wall. 2. Continue to monitor temperature and white blood cell count. 3. I did talk with Martin Villalobos in the Pharmacy Department today about correction of the hypokalemia. We are going to change the potassium chloride dosage to 40 mg p.o. t.i.d. with meals to try to correct the hypokalemia with increased oral intake of potassium. Serum potassium levels will be monitored. The serum magnesium level will be rechecked again tomorrow. 4. Arrangements will be made for the patient to receive care at the [facility] following discharge from the hospital. We will have the patient evaluated by nurses from [facility] tomorrow to see if she is a candidate for a wound VAC and to make arrangements to transition to outpatient care of the wound following discharge from this hospitalization. 5. The patient does have severe anemia and we may need to stop and evaluate that at the present time. The patient could undergo esophagogastroduodenoscopy and colonoscopy during this hospitalization for evaluation of the anemia. 6. Continue sequential compression devices for deep venous thrombosis prophylaxis. PATIENT EDUCATION I did talk with the patient about undergoing esophagogastroduodenoscopy tomorrow. The nature of this procedure was explained. Expected benefits were reviewed. Alternatives were reviewed. Potential risks and complications were reviewed. The patient does wish to proceed. JUAN
[2016-11-27] MEDS: ATENOLOL 25 MG TABLET PO SCH (08:26)
--- NOTE | 2016-11-27 08:48 | Procedure Note ---
DATE OF PROCEDURE 11/25/2016 DIAGNOSIS BEFORE PROCEDURE Subcutaneous anterior abdominal wall abscess at midline abdominal incision. DIAGNOSIS AFTER PROCEDURE Subcutaneous anterior abdominal wall abscess at midline abdominal incision. PROCEDURE Incision and drainage of subcutaneous anterior abdominal wall abscess at midline abdominal incision. SURGEON Dr. Nava ANESTHESIA Local FINDINGS This patient did have a vertically oriented midline abdominal incision scar from an operation performed on 10/24/2016. There was redness and tenderness and fluctuance at the segment of the incision located inferior to the umbilicus. There was a 12 cm x 8 cm area of fluctuance at the incision inferior to the level of the umbilicus. This was a vertically oriented area of fluctuance and tenderness around the incision. There were a couple of small openings at the incision with pus draining out through these areas. When incision and drainage was performed the patient was found to have a subcutaneous abscess. The fascia appeared to be intact. There did not appear to be any communication of the abscess with the peritoneal cavity. DESCRIPTION OF PROCEDURE The patient was placed in supine position on a cart in the emergency room. The lower abdomen was prepped with Betadine. Lidocaine 1% without epinephrine was infiltrated into skin and subcutaneous tissue at the segment of the midline vertically oriented abdominal incision which was inferior to the umbilicus. A scalpel was used to open the incision at a level inferior to the umbilicus. A 9 -cm long incision was made through the old incision scar at the midline. This was a vertically oriented 9 cm long incision. The incision was extended down through skin and subcutaneous tissue into the subcutaneous abscess cavity. Pus was evacuated out of the abscess cavity. Additional lidocaine was infiltrated repeatedly throughout this time to maintain patient comfort. All of the pus was evacuated. A culture of the pus had previously been performed in the emergency room. Hemostasis was then achieved at skin and subcutaneous tissue margins at the incision and drainage site. Some of the hemostasis was achieved with use of a handheld battery-powered hot wire cautery device. Silver nitrate sticks were also used to obtain hemostasis. Complete hemostasis was achieved. The open wound at the skin and subcutaneous tissue level at the anterior abdominal wall was packed open with normal saline-soaked gauze dressings. A dry ABD dressing was applied over this. Local anesthesia was infiltrated into tissue repeatedly throughout all this time to attempt to maintain patient comfort. The patient did appear to tolerate all of this well. [facility]
[2016-11-27] MEDS: LR 1,000 ML IV SCH ×2 (11:43→12:59)
[2016-11-27] MEDS: SULFAMETHOXAZOLE/TMP 800 MG/160 MG DS TABLET PO SCH ×2 (13:01→20:53)
[2016-11-27] MEDS ORDERED: LR 1,000 ML IV SCH (14:15)
[2016-11-27] MEDS ORDERED: MIDAZOLAM 2mg/2ml INJECTION ONE (14:20)
[2016-11-27] MEDS ORDERED: PROPOFOL 500 MG/50 ML VIAL IV ONE (14:21)
--- NOTE | 2016-11-27 14:33 | General Surgery Procedure Note ---
Date of Procedure: 11/27/16 Surgeon: Elijah Postoperative Diagnosis: Anemia Procedure: EGD Estimated Blood Loss: See Anesthesia Record.
--- NOTE | 2016-11-27 14:37 | Anesthesia Preoperative Report ---
Anesthesia Preoperative Record - Date and Time Date: 11/27/16 Preoperative Diagnosis: subcutaneous wound infection, cellulitis Proposed Procedure: EGD NPO Since Date: 11/26/16 NPO Since Time: 23:00 Allergies/Adverse Reactions: Allergies Allergy/AdvReac Type Severity Reaction Status Date / Time No Known Allergies Allergy Verified 11/25/16 12:59 - Vital Signs Vital Signs: Temperature 98.6 F 11/27/16 13:53 Pulse Rate 73 11/27/16 13:53 Respiratory Rate 16 11/27/16 13:53 Blood Pressure 122/73 11/27/16 13:53 Pulse Oximetry 97 11/27/16 13:53 Height and Weight: Height 5 ft 2 in Weight 54.8 kg Body Mass Index 21.2 - Medications Inpatient Medications: Current Medications Acetaminophen (Tylenol) 500 - 1,000 mg PO Q6H PRN PRN Reason: Discomfort Atenolol (Tenormin) 25 mg PO DAILY [facility]ENELLE Last Admin: 11/27/16 08:26 Dose: 25 mg Hydrochlorothiazide (Hydrodiuril) 25 mg PO WB [facility]ENELLE Last Admin: 11/27/16 08:27 Dose: 25 mg Lactated Ringer's (Lactated Ringers) 1,000 mls @ 50 mls/hr IV .Q20H JENELLE Last Infusion: 11/27/16 13:39 Dose: 0 mls/hr Lactated Ringer's (Lactated Ringers) 1,000 mls @ 30 mls/hr IV .Q24H [facility]ENELLE Last Admin: 11/27/16 14:03 Dose: 30 mls/hr Magnesium Sulfate/Dextrose (Mag Sulf 1gm Premix) 1 gm in 100 mls @ 100 mls/hr IV Q1H JENELLE Stop: 11/27/16 16:14 Ibuprofen (Motrin) 400 - 800 mg PO Q6H PRN Lovastatin (Mevacor) 20 mg PO HS JENELLE Last Admin: 11/26/16 20:53 Dose: 20 mg Magnesium Oxide (Magox) 400 mg PO DAILY JENELLE Metoclopramide HCl (Reglan) 10 mg PO ACHS JENELLE Last Admin: 11/27/16 13:00 Dose: 10 mg Morphine Sulfate (Morphine Sulfate Inj) 2 - 5 mg IV Q1H PRN PRN Reason: Pain Last Admin: 11/27/16 11:43 Dose: 3 mg Ondansetron HCl (Zofran) 4 - 8 mg IVP Q6H PRN PRN Reason: Nausea &/or vomiting Oxycodone HCl (Roxicodone *Ir*) 5 - 10 mg PO Q3H PRN PRN Reason: Pain Last Admin: 11/26/16 23:02 Dose: 10 mg Potassium Chloride (K-Dur) 40 meq PO WM [facility] Last Admin: 11/27/16 13:00 Dose: 40 meq Sodium Chloride (Iv Flush) 10 - 80 ml IVF PRN PRN PRN Reason: Flushing Trimethoprim/Sulfamethoxazole (Bactrim Ds) 1 tab PO BID [facility] Last Admin: 11/27/16 13:01 Dose: 1 tab Verapamil HCl (Calan Sr) 120 mg PO DAILY [facility] Last Admin: 11/27/16 08:26 Dose: 120 mg Home Medications: Home Medications Medication Instructions Recorded Confirmed Type Atenolol 25 mg PO DAILY #0 08/19/14 11/25/16 History hydroCHLOROthiazide 25 mg PO DAILY #0 08/19/14 11/25/16 History [Hydrochlorothiazide] Verelan (verapamil ER) 120 mg 24 120 mg PO DAILY cap 10/25/16 11/25/16 History hr capsule lovastatin 20 mg tablet 20 mg PO HS tab 10/25/16 11/25/16 History Is Patient on Beta Bhavesh?: No - Medical History Respiratory: DENIES: Asthma Cardiovascular: Reports: Hypertension, High Cholesterol Gastrointestional: DENIES: Gastroesophageal Reflux Disease Neuro/Musculoskeletal: Denies: Cerebrovascular Accident Renal/Endocrine: DENIES: Diabetes Mellitus Type 2 Other History: DENIES: Anesthesia Reactions - Surgical History GI Surgery/Treatments: Reports: Other (10/24/2016 "twisted intestine" surgery) Reproductive Surgery/Treatment: Reports: Tubal Ligation (1991) Anesthesia Reactions: None - Social History Smoking Status: Current some day smoker Hx Chewing Tobacco Use: No Second Hand Exposure: No Substance Use Type: does not use Alcohol Intake Frequency: former alcohol drinker - Pertinent Findings Laboratory: CBC and BMP 11/27/16 04:00 11/27/16 04:00 BMP 11/27/16 04:00 Sodium 140 Potassium 3.5 L D Chloride 109 H Carbon Dioxide 22 BUN 8.0 Creatinine 1.0 Glucose 64 L Calcium 8.4 EKG: Sinus Rhythm - Physical Exam Respiratory Exam: Present: lungs clear, bilateral breath sounds equal Cardiovascular Exam: Present: regular rate and rhythm - Airway Assessment Mallampati Score: II TMD: 3 Fingerbreadths Neck Extension: good Overall Assessment: no airway concerns - ASA ASA Score: 2 - Plan Anesthesia: General TIVA - Discussion Discussion: Discussed risks/options/alternatives of anesthesia and questions answered. Patient consents. Nursing pain assessment noted. Attestation Statement: Prior to the delivery of any anesthetic medication, I examined the patient, developed the plan, obtained the patient's consent and discussed the risk and benefits of the procedure with the patient/guardian. - Additional Information Seen by Anesthesia: Yes
--- NOTE | 2016-11-27 14:44 | Anesthesia Postoperative Note ---
- Date and Time Date: 11/27/16 Time: 14:44 - Status Patient Participated in Evaluation: Patient Participated in Person Vital Signs: Temperature 98.6 F 11/27/16 13:53 Pulse Rate 73 11/27/16 13:53 Respiratory Rate 16 11/27/16 13:53 Blood Pressure 122/73 11/27/16 13:53 Pulse Oximetry 97 11/27/16 13:53 Respiratory Function: Airway Patent Cardiovascular Function: Regular Pulse EKG: Sinus Rhythm Mental Status: Alert and Oriented Pain Intensity: 0 Hydration: IV Infusing Complications During Recover: None Apparent - Follow-Up Instructions Instructions: Per Surgeon
[2016-11-27] MEDS: MAGNESIUM SULFATE 1gm/100ml PREMIX IV SCH ×2 (15:25→16:39)
--- NOTE | 2016-11-27 15:41 | Operative Note ---
DATE OF OPERATION 11/27/2016 PREOPERATIVE DIAGNOSIS Severe anemia. POSTOPERATIVE DIAGNOSES 1. Severe anemia. 2. Normal findings at upper gastrointestinal tract. OPERATION Esophagogastroduodenoscopy. SURGEON Dr. Elijah HERBERT ASA Class 2 FINDINGS Mucosa appeared normal throughout the esophagus, stomach and duodenum. No bright red blood or old blood was seen anywhere at the upper gastrointestinal tract. No source for bleeding which would lead to anemia was found at the upper gastrointestinal tract. Findings were normal throughout the upper gastrointestinal tract. DESCRIPTION OF OPERATION The patient was brought to the endoscopy room. The patient was placed in left lateral recumbent position on the cart. The patient was premedicated with intravenous sedation medication administered by the nurse deputy director of finance. The Olympus upper GI endoscope was used. The upper GI endoscope was introduced into the esophagus. The upper GI endoscope was advanced down through the esophagus and stomach and into the duodenum. The upper GI endoscope was then withdrawn from the duodenum back into the stomach. The upper GI endoscope was retroflexed and the gastroesophageal junction was viewed from below. The upper GI endoscope was straightened out. The stomach was examined further. The upper GI endoscope was then withdrawn out through the stomach and esophagus and removed from the patient. Findings throughout the procedure were as described above. The patient did continue to receive intravenous sedation medication administered by the nurse deputy director of finance throughout the operation. The patient did tolerate the operation well. JUAN
[2016-11-27] MEDS: Oxycodone *IR* 5 MG TABLET PO PRN ×3 (16:06→21:14)
--- NOTE | 2016-11-27 16:40 | Wound Care Progress Note ---
Wound Management - Wound Anterior Medial Abdomen Wound Present on Admission?: No Length: 7.2 Width: 2.5 Depth: 2 Wound Bed Appearance: Beefy Red, Slough Anika Wound Appearance: Well Defined (Pt had surgery on 10/24 incison reopened on 11/26) Tunneling: No Undermining: No Drainage Description: Sanguineous Drainage Amount: Moderate Drainage Odor: No Odor Dressing Status: Changed Packing Type: Woundvac Sponge Number of Packing Pieces Placed?: 1 Primary Dressing: Transparent Drape Secondary Dressing: Trac Pad Dressing Change Date: 11/27/16 Dressing Change Time: 16:40 Dressing Change Patient Tolerance: Tolerated Well (Pt tolerated well, will change on .)
[2016-11-27] MEDS ORDERED: LIDOCAINE 5% CREAM 15gm TOP PRN (16:44)
[2016-11-27] MEDS ORDERED: POLYETHYL. GLYCOL 3350 BOTTLE 238 GM PO ONE (16:44)
--- NOTE | 2016-11-27 16:49 | Progress Note ---
DATE 11/27/2016 HISTORY OF PRESENT ILLNESS The patient is doing well. PHYSICAL EXAMINATION VITAL SIGNS: Temperature is 96.6 degrees Fahrenheit oral. Pulse is 73. Respiratory rate is 16. Blood pressure is 122/73. Oxygen saturation is 95% on room air. ABDOMEN: Dressings are in place and packing is in place at the wound at the lower abdomen at the midline at the previous incision site where the patient did undergo incision and drainage of a subcutaneous abscess on 11/25/2016. LABORATORY DATA White blood cell count is 12,900 with no bands today. Hemoglobin is 7.4. Hematocrit is 23.2. Serum potassium is 3.5 today. Serum magnesium is 1.4 which is mildly low. Cultures of pus from the subcutaneous abscess at the abdominal wall which was drained on 11/25/2016 are growing out MRSA. IMPRESSION 1. Doing well following incision and drainage of MRSA subcutaneous abscess at anterior abdominal wall on 11/25/2016. 2. Hypokalemia which is improving. 3. Severe anemia which is stable. 4. Mild hypomagnesemia. 5. Cellulitis around subcutaneous abscess site at anterior abdominal wall. PLAN 1. I did talk with a pharmacist today about antibiotic treatment of the subcutaneous abscess and the cellulitis. Intravenous Zosyn will be discontinued. Oral Bactrim DS will be started today. 2. I did talk with Alexa Luo about management of the open wound at the midline vertically oriented abdominal incision below the level of the umbilicus. She will assess this open wound later today and evaluate the patient for a possible wound VAC. We will plan to transition the patient to wound care at the [facility] following discharge of the patient from the hospital. 3. Continue potassium chloride 40 mEq p.o. t.i.d. to correct the hypokalemia. 4. Some magnesium oxide could be started to correct the hypomagnesemia. 5. Esophagogastroduodenoscopy today for evaluation of the severe anemia. We may also schedule the patient for a colonoscopy tomorrow for further evaluation of the severe anemia. 6. Continue sequential compression devices for deep venous thrombosis prophylaxis. MTDD
[2016-11-27] MEDS: LOVASTATIN 20 MG TABLET PO SCH (20:53)
[2016-11-27] MEDS ORDERED: MAGNESIUM CITRATE 296ml PO ONE (21:26)
[2016-11-28] MEDS: Oxycodone *IR* 5 MG TABLET PO PRN ×4 (00:39→20:58)
--- NOTE | 2016-11-28 07:13 | Anesthesia Preoperative Report ---
Anesthesia Preoperative Record - Date and Time Date: 11/28/16 Preoperative Diagnosis: subcutaneous wound infection, cellulitis NPO Since Date: 11/27/16 NPO Since Time: 00:00 Allergies/Adverse Reactions: Allergies Allergy/AdvReac Type Severity Reaction Status Date / Time No Known Allergies Allergy Verified 11/25/16 12:59 - Vital Signs Vital Signs: Temperature 98.4 F 11/28/16 00:00 Pulse Rate 66 11/28/16 00:00 Respiratory Rate 14 11/28/16 00:00 Blood Pressure 125/79 11/28/16 00:00 Pulse Oximetry 98 11/28/16 00:00 Height and Weight: Height 1.57 m Weight 54.8 kg Body Mass Index 21.2 - Medications Inpatient Medications: Current Medications Acetaminophen (Tylenol) 500 - 1,000 mg PO Q6H PRN PRN Reason: Discomfort Atenolol (Tenormin) 25 mg PO DAILY [facility] Last Admin: 11/27/16 08:26 Dose: 25 mg Hydrochlorothiazide (Hydrodiuril) 25 mg PO WB [facility] Last Admin: 11/27/16 08:27 Dose: 25 mg Lactated Ringer's (Lactated Ringers) 1,000 mls @ 50 mls/hr IV .Q20H [facility] Last Infusion: 11/27/16 17:39 Dose: 50 mls/hr Lactated Ringer's (Lactated Ringers) 1,000 mls @ 30 mls/hr IV .Q24H [facility] Last Infusion: 11/27/16 15:01 Dose: Infused Ibuprofen (Motrin) 400 - 800 mg PO Q6H PRN Lidocaine (Anecream5) 1 applic TOP PRN PRN Lovastatin (Mevacor) 20 mg PO HS [facility] Last Admin: 11/27/16 20:53 Dose: 20 mg Magnesium Oxide (Magox) 400 mg PO DAILY [facility] Metoclopramide HCl (Reglan) 10 mg PO ACHS [facility] Last Admin: 11/28/16 06:27 Dose: Not Given Morphine Sulfate (Morphine Sulfate Inj) 2 - 5 mg IV Q1H PRN PRN Reason: Pain Last Admin: 11/27/16 15:25 Dose: 3 mg Ondansetron HCl (Zofran) 4 - 8 mg IVP Q6H PRN PRN Reason: Nausea &/or vomiting Oxycodone HCl (Roxicodone *Ir*) 5 - 10 mg PO Q3H PRN PRN Reason: Pain Last Admin: 11/28/16 00:39 Dose: 10 mg Potassium Chloride (K-Dur) 40 meq PO WM [facility] Last Admin: 11/27/16 16:43 Dose: 40 meq Sodium Chloride (Iv Flush) 10 - 80 ml IVF PRN PRN PRN Reason: Flushing Trimethoprim/Sulfamethoxazole (Bactrim Ds) 1 tab PO BID [facility] Last Admin: 11/27/16 20:53 Dose: 1 tab Verapamil HCl (Calan Sr) 120 mg PO DAILY [facility] Last Admin: 11/27/16 08:26 Dose: 120 mg Home Medications: Home Medications Medication Instructions Recorded Confirmed Type Atenolol 25 mg PO DAILY #0 08/19/14 11/25/16 History hydroCHLOROthiazide 25 mg PO DAILY #0 08/19/14 11/25/16 History [Hydrochlorothiazide] Verelan (verapamil ER) 120 mg 24 120 mg PO DAILY cap 10/25/16 11/25/16 History hr capsule lovastatin 20 mg tablet 20 mg PO HS tab 10/25/16 11/25/16 History Is Patient on Beta Bhavesh?: Yes - Medical History Cardiovascular: Reports: Hypertension, High Cholesterol - Surgical History Cardiac Surgeries/Treatments: DENIES: Pacemaker Reproductive Surgery/Treatment: DENIES: Mastectomy Anesthesia Reactions: None Hx Family Anesthesia Reaction: No History of Motion Sickness: No - Social History Smoking Status: Current some day smoker Hx Chewing Tobacco Use: No Second Hand Exposure: No Substance Use Type: does not use Alcohol Intake Frequency: former alcohol drinker - Pertinent Findings Laboratory: CBC and BMP 11/28/16 04:10 11/28/16 04:10 BMP 11/28/16 04:10 Sodium 141 Potassium 3.6 Chloride 107 Carbon Dioxide 24 BUN 3.0 L D Creatinine 0.8 D Glucose 89 Calcium 8.7 EKG: Sinus Rhythm - Physical Exam Respiratory Exam: Present: lungs clear, bilateral breath sounds equal Cardiovascular Exam: Present: regular rate and rhythm - Airway Assessment Mallampati Score: II TMD: 3 Fingerbreadths Neck Extension: good Overall Assessment: no airway concerns - ASA ASA Score: 2 - Plan Anesthesia: General TIVA - Discussion Discussion: Discussed risks/options/alternatives of anesthesia and questions answered. Patient consents. Nursing pain assessment noted. Attestation Statement: Prior to the delivery of any anesthetic medication, I examined the patient, developed the plan, obtained the patient's consent and discussed the risk and benefits of the procedure with the patient/guardian. - Additional Information Seen by Anesthesia: Yes
[2016-11-28] MEDS ORDERED: PROPOFOL 500 MG/50 ML VIAL IV ONE (07:21)
[2016-11-28] MEDS: LR 1,000 ML IV SCH ×4 (07:24→14:59)
--- NOTE | 2016-11-28 08:10 | General Surgery Procedure Note ---
Date of Procedure: 11/28/16 Surgeon: Elijah Postoperative Diagnosis: Rectal polyp Procedure: Total colonoscopy with polypectomy Estimated Blood Loss: See Anesthesia Record.
--- NOTE | 2016-11-28 08:44 | Anesthesia Postoperative Note ---
- Date and Time Date: 11/28/16 Time: 08:40 - Status Patient Participated in Evaluation: Patient Participated in Person Vital Signs: Temperature 97.3 F 11/28/16 08:32 Pulse Rate 76 11/28/16 08:30 Respiratory Rate 22 11/28/16 08:30 Blood Pressure 138/72 11/28/16 08:30 Pulse Oximetry 99 11/28/16 08:30 Respiratory Function: Airway Patent, Regular Respirations Cardiovascular Function: Regular Pulse Mental Status: Alert and Oriented Pain Intensity: 0 Hydration: IV Infusing Complications During Recover: None Apparent - Follow-Up Instructions Instructions: Per Surgeon
[2016-11-28] MEDS: MAGNESIUM OXIDE 400 MG TABLET PO SCH (10:11)
[2016-11-28] MEDS: ATENOLOL 25 MG TABLET PO SCH (10:11)
[2016-11-28] MEDS: SULFAMETHOXAZOLE/TMP 800 MG/160 MG DS TABLET PO SCH ×2 (10:20→20:25)
--- NOTE | 2016-11-28 15:30 | Operative Note ---
DATE OF OPERATION 11/28/2016 PREOPERATIVE DIAGNOSIS Anemia. POSTOPERATIVE DIAGNOSES 1. Anemia. 2. Rectal polyp. 3. Two colon polyps. OPERATION Total colonoscopy with polypectomy. SURGEON Dr. Nava. ANESTHESIA TIVA ASA Class 2 FINDINGS There were no colon or rectal tumors. The patient did have a moderate- size rectal polyp. The patient had a small proximal ascending colon polyp. The patient had a small polyp at the colon at the hepatic flexure. There were no colonic angiodysplasia lesions. There was no melanosis coli. There was no inflammatory bowel disease. There was no colonic diverticulosis. Findings were normal throughout the colon and rectum except for the polyps. No bright red blood or old blood was seen anywhere at the colon or rectum today. No obvious source for bleeding which would lead to severe anemia was found at the colon or rectum today. DESCRIPTION OF OPERATION The patient was brought to the endoscopy room. The patient was placed on a cart in the endoscopy room. The patient was placed in left lateral recumbent position on the cart in the endoscopy room. The patient was premedicated with intravenous sedation medication administered by the nurse legal executive. The Olympus colonoscope was used. The colonoscope was introduced into the rectum. The rectal polyp was identified. The rectal polyp was removed with the electrocautery snare device and retrieved and submitted as a specimen for study by the pathologist. The colonoscope was then advanced up through the rectum and colon all the way up to the cecum. The appendiceal orifice was clearly identified. The ileocecal valve was clearly identified. The colonoscope was then withdrawn out through the colon. As the colonoscope was withdrawn out through the colon, a small polyp was seen at the proximal ascending colon. This polyp was removed with several bites of the cold endoscopic biopsy forceps and submitted as a specimen for study by the pathologist. The colonoscope was withdrawn further out through the colon. Another small polyp was identified at the hepatic flexure. This polyp was removed with several bites of the cold endoscopic biopsy forceps and submitted as a specimen for study by the pathologist. The colonoscope was then withdrawn the remainder of the way out through the colon and rectum and removed from the patient. Digital rectal examination was performed. Findings throughout the procedure were as described above. The patient did continue to receive intravenous sedation medication administered by the nurse legal executive throughout the operation. The patient did appear to tolerate the operation well. [facility]
--- NOTE | 2016-11-28 18:04 | Progress Note ---
DATE 11/28/2016 HISTORY This patient did undergo insertion of a midline catheter yesterday. The patient did have a wound VAC applied to the open wound at the anterior abdominal wall by Evelin Luo RN yesterday. The patient was started on treatment with magnesium oxide 400 mg p.o. daily yesterday. The patient did undergo esophagogastroduodenoscopy yesterday with normal findings at the upper gastrointestinal tract at that time. The patient did undergo total colonoscopy with polypectomy this morning by Dr. Nava. The patient had two colon polyps and one rectal polyp removed at this procedure. No obvious source for bleeding that would lead to severe anemia was found at the colon or rectum at total colonoscopy today. PHYSICAL EXAMINATION VITAL SIGNS: Temperature is 98.6 degrees Fahrenheit oral today. Pulse is 71. Respiratory rate is 18. Blood pressure is 123/69. Oxygen saturation is 100% on room air. ABDOMEN: The patient does have a wound VAC in place at the open wound at the midline at the lower abdomen. LABORATORY DATA White blood cell count is 10,100 with no bands today. Hemoglobin is 7.7. Hematocrit is 24.1. Serum electrolytes are normal. Serum potassium is 3.6 today. Serum creatinine is 0.8. Blood cultures on a specimen obtained at the time of admission to the hospital show no growth after three days. IMPRESSION 1. Doing well following incision and drainage of MRSA subcutaneous abscess at anterior abdominal wall on 11/25/2016. 2. Resolution of hypokalemia. 3. Severe anemia which is stable. No obvious source for blood loss from the gastrointestinal tract which would lead to anemia was found at esophagogastroduodenoscopy yesterday or total colonoscopy today. 4. One rectal polyp and two colon polyps removed at total colonoscopy today. PLAN 1. Continue treatment with Bactrim DS one p.o. b.i.d. 2. Continue potassium chloride 40 mEq p.o. t.i.d. 3. Continue magnesium oxide 400 mg one p.o. daily. 4. Continue sequential compression devices for deep venous thrombosis prophylaxis. 5. Arrangements are being made at this time by Case Management to apply for a wound VAC for the patient to use on an outpatient basis after discharge from the hospital. It is anticipated that wound care will be a transitioned to [facility] following discharge of the patient from the hospital for care of the open wound at the anterior abdominal wall at the lower abdomen. MTDD
[2016-11-28] MEDS: LOVASTATIN 20 MG TABLET PO SCH (20:25)
[2016-11-29] MEDS: LR 1,000 ML IV SCH ×2 (05:05→11:25)
[2016-11-29] MEDS: Oxycodone *IR* 5 MG TABLET PO PRN ×3 (05:07→13:08)
[2016-11-29] MEDS: ATENOLOL 25 MG TABLET PO SCH (08:39)
[2016-11-29] MEDS: MAGNESIUM OXIDE 400 MG TABLET PO SCH (08:39)
[2016-11-29] MEDS: SULFAMETHOXAZOLE/TMP 800 MG/160 MG DS TABLET PO SCH (08:39)
[2016-11-29 13:13] VITALS: BP 130/77; PULSE 64; RESP 18; TEMP 97.9; O2SAT 98
--- NOTE | 2016-11-29 13:25 | Wound Care Progress Note ---
Wound Management - Wound Medial Abdomen Wound Type: Surgical Incision (Dehisence, Late Entry from 11/27/16) Wound Present on Admission?: Yes Length: 7.2 Width: 2.5 Depth: 2 Wound Bed Appearance: Beefy Red, Slough Anika Wound Appearance: Edematous Tunneling: No Undermining: No Drainage Description: Sanguineous Drainage Amount: Moderate Drainage Odor: No Odor Dressing Status: Changed Packing Type: Woundvac Sponge Number of Packing Pieces Placed?: 1 Primary Dressing: Transparent Drape Secondary Dressing: Trac Pad Dressing Change Date: 11/27/16 Dressing Change Time: 13:00 Dressing Change Patient Tolerance: Tolerated Well
--- NOTE | 2016-11-29 13:28 | Wound Care Progress Note ---
Wound Management - Wound Medial Abdomen Wound Present on Admission?: Yes Wound Bed Appearance: Beefy Red, Slough Tunneling: No Undermining: No Drainage Description: Serosanguineous Drainage Amount: Moderate Drainage Odor: No Odor Dressing Status: Changed Packing Type: Woundvac Sponge Number of Packing Pieces Removed?: 1 Number of Packing Pieces Placed?: 1 Primary Dressing: Transparent Drape Secondary Dressing: Trac Pad Dressing Change Date: 11/29/16 Dressing Change Time: 13:27
--- NOTE | 2016-11-29 14:23 | Consultation ---
DATE OF CONSULTATION 11/29/2016 REASON FOR CONSULTATION Anemia. HISTORY OF PRESENT ILLNESS This is a 56-year-old female patient who underwent bowel resection on October 23, [address] Nava. Postoperatively she has developed abdominal/ subcutaneous abscess. She is receiving treatment by Wound Care. She has a wound VAC. Back in August the patient's hemoglobin was 13. She presented at this time with abdominal pain and noted to have hemoglobin of 9. With hydration during hospitalization was found to have hemoglobin down to 7. She underwent EGD and colonoscopy. EGD was unremarkable. Colonoscopy showed two small colonic and rectal polyps. UA with trace blood. She denied vaginal bleeding. She denied any kind of bleeding. She denied chest pain or shortness of breath. Her main complaint is abdominal pain. She is scheduled to go home today. She is prescribed iron supplement. REVIEW OF SYSTEMS GENERAL: She has no fever. CARDIOVASCULAR: No chest pain. RESPIRATORY: No shortness of breath. No cough. No hemoptysis. GI: Abdominal pain. No nausea. No vomiting. [employer]: No history of stroke. : No vaginal bleeding. No blood in the urine. LAB/IMAGING Electrolytes and liver enzymes were normal. CBC remarkable for elevated platelets and hemoglobin of 7.7. White count normal with normal differential. CT Scan: She had a subcutaneous abscess. PAST MEDICAL HISTORY Hypertension. MEDICATIONS Atenolol. Hydrochlorothiazide. Ibuprofen. Lovastatin. Reglan as needed. Morphine sulfate. Zofran. Oxycodone. Potassium supplement. Verapamil. Bactrim DS. ASSESSMENT 1. Normochromic normocytic anemia most likely multifactorial due to postoperative blood loss and bone marrow suppression due to ongoing infection. There is no obvious source of bleeding by EGD and colonoscopy. RECOMMENDATION AND PLAN Will check iron profile, serum B12 and folate. The patient may be discharged with iron supplement. Will check CBC as an outpatient. MTDD
--- NOTE | 2016-11-29 16:11 | Discharge Instructions ---
Discharge Plan - Med Rec/Dispo Referrals/Follow Up: Ban De Leon MD [Physician] - 01/03/17 2:00 pm Prescriptions: Continue hydroCHLOROthiazide [Hydrochlorothiazide] 25 mg PO DAILY #0 Atenolol 25 mg PO DAILY #0 lovastatin 20 mg tablet 20 mg PO HS tab Verelan (verapamil ER) 120 mg 24 hr capsule 120 mg PO DAILY cap K-Tab (potassium chloride ER) 20 mEq tablet 20 meq PO BID #60 tab
--- NOTE | 2016-11-29 20:52 | Progress Note ---
DATE 11/29/2016 HISTORY OF PRESENT ILLNESS The patient is doing well. Evelin Luo RN, did change the wound VAC dressing for the patient this morning. The wound was looking good. The patient was noted to have a hemoglobin of [address] De Leon was consulted regarding the anemia. Dr. De Leon did think that the patient has normochromic normocytic anemia most likely multifactorial due to postoperative blood loss and bone marrow suppression due to ongoing infection. He did order laboratory tests to check iron profile, serum B12 and folate. He thought that the patient could be discharged from the hospital today with an iron supplement. He will see the patient for followup with a CBC in six weeks. PHYSICAL EXAMINATION VITAL SIGNS: Temperature is 97.9 degrees Fahrenheit oral. Pulse is 64. Respiratory rate is 18. Blood pressure is 130/77. Oxygen saturation is 98% on room air. ABDOMEN: The patient does have a wound VAC dressing in place at the open wound at the lower abdomen. LABORATORY DATA White blood cell count is 8400 with no bands. Hemoglobin is 7. Hematocrit is 21.7. Serum potassium is 3.9. IMPRESSION 1. Doing well following incision and drainage of MRSA subcutaneous abscess at anterior abdominal wall on 11/25/2016. 2. Normocytic normochromic anemia most likely multifactorial due to postoperative blood loss and bone marrow suppression due to ongoing infection. 3. Resolution of hypokalemia. PLAN 1. Dismiss patient from [facility] today. 2. The patient does have an appointment for followup at [facility] on 12/04/2016 for a wound VAC dressing change. The patient will have followup for treatment of the open wound at the lower abdomen at [facility]. 3. The patient will have a followup appointment with Dr. De Leon in six weeks for followup of the anemia. The patient will take an iron supplement daily between now and then. DISCHARGE MEDICATIONS 1. Atenolol 25 mg one tablet p.o. daily. 2. Hydrochlorothiazide 25 mg one tablet p.o. daily. 3. Lovastatin 20 mg one tablet p.o. daily at bedtime. 4. Verapamil ER 120 mg one extended-release capsule p.o. b.i.d. 5. Reglan 10 mg one tablet p.o. q.i.d. one-half hour before meals and at bedtime until the current supply of Reglan which the patient has at home is used up. The patient will then discontinue the Reglan after that. 6. Potassium chloride 20 mEq two p.o. t.i.d. (dispense 180 - refill x12). 7. Bactrim DS one p.o. b.i.d. (dispense 16 - no refills). 8. Oxycodone 5 mg one to two tablets p.o. every four hours p.r.n. pain ( dispense 40 - no refills). 9. Acetaminophen 325 mg one to two tablets p.o. every five hours p.r.n. pain. 10. Ibuprofen 200 mg two to four tablets p.o. every six hours p.r.n. pain. 11. Integra iron/vitamin supplement capsules one p.o. daily. MTDD
--- NOTE | 2016-12-04 10:05 | Discharge Summary ---
DISCHARGE DIAGNOSES 1. Subcutaneous MRSA anterior abdominal wall abscess at midline abdominal incision. 2. Cellulitis at anterior abdominal wall. 3. Sepsis. 4. Normochromic normocytic anemia most likely multifactorial due to postoperative blood loss and bone marrow suppression due to ongoing infection. 5. Hypokalemia. 6. Mild hypomagnesemia. 7. Tubular adenoma rectal polyp. 8. Tubular adenoma colon polyp. 9. Hypertension. 10. Hyperlipidemia. OPERATIONS AND PROCEDURES 1. Incision and drainage of subcutaneous anterior abdominal wall abscess at midline abdominal incision on 11/25/2016. 2. Esophagogastroduodenoscopy on 11/27/2016. 3. Total colonoscopy with polypectomy on 11/28/2016. CONSULTANTS 1. Dr. De Leon HOSPITAL COURSE This patient was admitted to [facility] by Dr. Nava on 11/25/2016. History and physical examination findings at the time of admission to the hospital can be found in the dictated admission history and physical examination report in the chart. White blood cell count was 20,200 at the time of admission to the hospital. Hemoglobin was 9.3. Hematocrit was 28.4. Serum sodium was 148. Serum potassium was 3. Procalcitonin was 0.06. Plasma lactate was 0.8. The patient did have a CT scan of the abdomen and pelvis performed at [facility] at the time of admission to the hospital. This did show a 3 cm x 3 cm x 9 cm subcutaneous fluid collection at the anterior abdominal wall at a level inferior to the umbilicus at the midline. There was surrounding subcutaneous edema. The patient was thought at the time of admission to the hospital to have a subcutaneous abscess at the midline abdominal incision at a level inferior to the umbilicus. The patient was thought to have cellulitis around the subcutaneous abscess at the anterior abdominal wall. The patient was thought to have sepsis. The patient was noted at the time of admission to the hospital to have anemia and hypokalemia. The patient was known at the time of admission to the hospital to have chronic medical problems including hypertension and hyperlipidemia. The patient did undergo incision and drainage of the subcutaneous anterior abdominal wall abscess at the midline abdominal incision by Dr. Nava in the emergency room at the time of admission to the hospital. Collections of pus from the abscess at the anterior abdominal wall were obtained at the time of admission to the hospital and submitted for culture and sensitivity studies. The patient did also undergo blood cultures at the time of admission to the hospital. The patient was started on intravenous antibiotic treatment with Zosyn at the time of admission to the hospital. Sequential compression devices were started for deep venous thrombosis prophylaxis at the time of admission to the hospital. The wound at the anterior abdominal wall following incision and drainage of the abscess was packed open with normal saline-soaked gauze at the time of admission to the hospital. Pain control was provided with intravenous and oral analgesics at the time of admission to the hospital. On 11/26/2016, the patient reported that she was having much less lower abdominal pain following incision and drainage of the subcutaneous abscess on the previous day. White blood cell count was 13,900 on 11/26/2016. Hemoglobin was 7.3. Hematocrit was 22.7. There were no bands. Serum potassium was 2.6. Preliminary culture results of pus drained from the subcutaneous abscess at the anterior abdominal wall on the previous day did show that the culture was growing out Staphylococcus aureus. Blood culture results were pending. Intravenous antibiotic treatment with Zosyn had been started at the time of admission to the hospital. This Zosyn intravenous antibiotic treatment was continued at this time. Dr. Nava did talk with Martin Villalobos from the pharmacy department about correction of the hypokalemia. A decision was made at this time to change the potassium chloride dosage of the patient to 40 mEq p.o. t.i.d. with meals to try to correct the hypokalemia with increased oral intake of potassium. Plans were made to recheck serum magnesium level on the following day. This serum magnesium level had been checked during a previous hospitalization and had been normal at that time. Dressing changes continued to be performed at the open incision and drainage site wound at the anterior abdominal wall with normal saline-soaked gauze dressings at this time. Sequential compression devices were continued for deep venous thrombosis prophylaxis. Plans were being made at this time to evaluate the severe anemia which the patient was experiencing. Plans were made for the patient to undergo esophagogastroduodenoscopy on the following day. The patient did undergo esophagogastroduodenoscopy on 11/27/2016. Findings were normal at the upper gastrointestinal tract at this time. No source for the severe anemia was found at esophagogastroduodenoscopy. The white blood cell count was 12,900 with no bands on 11/27/2016. Hemoglobin was 7.4. Hematocrit was 23.2. Serum potassium was 3.5. Serum magnesium was 1.4, which was mildly low. Cultures of pus from the subcutaneous abscess at the anterior abdominal wall which was drained on 11/25/2016 were growing out MRSA. The intravenous Zosyn was discontinued on 11/27/2016. Sensitivity results from the culture of the pus drained from the anterior abdominal wall did show that the MRSA was sensitive to Bactrim DS. Oral Bactrim DS antibiotic treatment was started on 11/27/2016. The patient did have a wound VAC applied to the open wound at the anterior abdominal wall by Evelin Luo RN, on 11/27/2016. The patient did undergo insertion of a midline catheter on 11/27/2016. The patient was started on treatment with magnesium oxide 400 mg p.o. daily on 11/27. Potassium chloride 40 mEq p.o. t.i.d. was continued. Sequential compression devices were continued for deep venous thrombosis prophylaxis. The patient did undergo total colonoscopy with polypectomy on 11/28/[address] Nava. The patient had two colon polyps and one rectal polyp removed at this time. No obvious source for bleeding which would lead to severe anemia was found at the colon or rectum at total colonoscopy at this time. White blood cell count was 10,100 with no bands on 11/28/2016. Hemoglobin was 7.7. Hematocrit was 24.1. Serum potassium was 3.6. Blood cultures on the specimen obtained at the time of admission to the hospital were showing no growth after three days. The patient did have a wound VAC in place at the open wound at the lower abdomen. The hypokalemia appeared to be resolved at this time. The anemia was stable. The patient did continue to receive treatment with Bactrim DS one p.o. b.i.d. The patient continued to receive treatment with potassium chloride 40 mEq p.o. t.i.d. The patient continued to receive magnesium oxide 400 mg one p.o. daily. Sequential compression devices were continued at this time for deep venous thrombosis prophylaxis. Plans were being made by Case Management at this time for wound VAC treatment of the open wound at the lower abdomen on an outpatient basis following discharge from the hospital. Evelin Luo RN, did change the wound VAC dressing at the open wound at the lower abdomen for the patient on 11/29/2016. The wound was looking good at this time. The patient had a white blood cell count of 8400 with no bands on . Hemoglobin was 7. Hematocrit was 21.7. Serum potassium was 3.9. Dr. De Leon was consulted on 11/29/[address] De Leon did think that the patient had normochromic normocytic anemia most likely multifactorial due to postoperative blood loss and bone marrow suppression due to the ongoing infection. He did order laboratory tests to check iron profile, serum B12 and folate. The iron level was normal. Percent of iron saturation was normal. Serum ferritin was normal. B12 level was greater than 1000 and was elevated. Folate level was normal. Dr. De Leon did plan to see the patient for followup with a CBC six weeks following discharge from the hospital. The hypokalemia appeared to be resolved at this time. The patient was able to be dismissed from [facility] in stable condition on 11/29/2016. Final blood culture results were later returned, showing no growth after five days. A pathology report was returned on the colon and rectal polyps removed at total colonoscopy with polypectomy on 11/28/2016. The rectal polyp was a tubular adenoma with low grade dysplasia. The polyp removed from the proximal ascending colon was a tubular adenoma with low grade dysplasia. The polypoid structure removed from the hepatic flexure at the time of the total colonoscopy procedure was benign mildly edematous colonic mucosa with prominent lymphoid aggregates. DISCHARGE MEDICATIONS 1. Atenolol 25 mg one tablet p.o. daily. 2. Hydrochlorothiazide 25 mg one tablet p.o. daily. 3. Lovastatin 20 mg one tablet p.o. daily at bedtime. 4. Verapamil ER 120 mg one extended-release capsule p.o. b.i.d. 5. Reglan 10 mg one tablet p.o. q.i.d. one-half hour before meals and at bedtime until the current supply of Reglan which the patient has at home is used up. The patient will then discontinue the Reglan after that. 6. Potassium chloride 20 mEq two p.o. t.i.d. (dispense 180 - refill x 12). 7. Bactrim DS one p.o. b.i.d. (dispense 16 - no refills). 8. Oxycodone 5 mg 1-2 tablets p.o. every 4 hours p.r.n. pain (dispense 40 - no refills). 9. Acetaminophen 325 mg 1-2 tablets p.o. every 5 hours p.r.n. pain. 10. Ibuprofen 200 mg 2-4 tablets p.o. every 6 hours p.r.n. pain. 11. Integra iron/vitamin supplement capsules one p.o. daily. DISCHARGE DISPOSITION 1. The patient does have an appointment made for follow up at [facility] on 12/04/2016 for a wound VAC dressing change. The patient will be followed up at [facility] by Dr. Nava. 2. The patient will have a followup appointment with Dr. De Leon six weeks following discharge from the hospital for followup of the anemia. JUAN
== END 2016-11-29 17:10 | disposition home health service (06) | DRG 854 ==
LOC: ED 12:28 → SRG 16:44
PROVIDERS: ADMIT Surgery; ATTEND Surgery
PROC: END.EGD (2016-11-27 14:00)